=== PATIENT | male | born 1950 | race Caucasian/White ===

== ENCOUNTER 2017-02-25 19:55 | Inpatient (IN) | payer MEDICAID ==
[~2017-02-25] VITALS: Ht 165.1 cm; Wt 114.3 kg
--- NOTE | 2017-02-25 20:13 | NUR ---
PT BIB , AMBULATORY TO ER BED 8 C/O MIDUPPER BACK PAIN X YESTERDAY, NOW HAVING MIDSTERNAL CP RADIATES TO BACK X2 HRS ENGINE REPAIRER SERVICE. PT AOX3 RR EVEN AND UNLABORED. NO SOB NOTED. NAD NOTED. NO NVD AT THIS TIME. PT NOT DIAPHORETIC. PT GOWNED AND PLACED ON MONITOR WAITING FOR MD BROOKS.
--- NOTE | 2017-02-25 20:20 | NUR ---
DR. ESQUIVEL AT BEDSIDE FOR EVAL.
[2017-02-25] MEDS ORDERED: ONDANSETRON HCL/PF 4 MG/2 ML VIAL ONE (20:29)
[2017-02-25] MEDS ORDERED: MORPHINE SULFATE INJ 2 MG/ML DISP.SYRIN IV ONE (20:30)
[2017-02-25] MEDS ORDERED: ASPIRIN 81 MG TAB.CHEW ONE (20:30)
[2017-02-25] MEDS ORDERED: MORPHINE SULFATE INJ 4 MG/ML DISP.SYRIN ONE (20:30)
[2017-02-25] MEDS ORDERED: ONDANSETRON HCL/PF 4 MG/2 ML VIAL IVP ONE (20:30)
[2017-02-25] MEDS ORDERED: ASPIRIN 81 MG TAB.CHEW PO ONE (20:30)
[2017-02-25] MEDS ORDERED: IV NS 0.9% 1,000 ML BAG IV ONE (20:30)
[2017-02-25 20:54] LABS: BASOPHILS # (AUTO) 0.1 /CMM (0.0-0.2); BASOPHILS % (AUTO) 1.3 % (0.0-2.0); EOSINOPHILS # (AUTO) 0.4 /CMM (0.0-0.7); EOSINOPHILS % (AUTO) 3.9 % (0.0-6.0); HEMATOCRIT 46 % (39-51); HEMOGLOBIN 15.2 g/dL (13.5-17.5); LYMPHOCYTES # (AUTO) 2.8 /CMM (0.8-4.8); LYMPHOCYTES % (AUTO) 27.4 % (20.0-44.0); MEAN CORPUSCULAR HEMOGLOBIN 30 PG (26.0-33.0); MEAN CORPUSCULAR HGB CONC 33 g/dl (31.0-36.0); MEAN CORPUSCULAR VOLUME 89 fL (80-96); MONOCYTES # (AUTO) 0.6 /CMM (0.1-1.30); MONOCYTES % (AUTO) 5.5 % (2.0-12.0); NEUTROPHILS # (AUTO) 6.3 /CMM (1.8-8.9); NEUTROPHILS % (AUTO) 61.9 % (43.0-81.0); PLATELET COUNT (AUTO) 195 /CMM (150-450); RDW COEFFICIENT OF VARIATION 14.2 (11.5-15.0); RED BLOOD CELL COUNT(AUTO) 5.15 MIL/uL (4.5-6.0); WHITE BLOOD COUNT (AUTO) 10.3 K/uL (4.3-11.0)
--- NOTE | 2017-02-25 20:56 | NUR ---
RADIOLOGY AT BEDSIDE FOR CXR
[2017-02-25 21:01] LABS: CALCIUM, SERUM 8.9 mg/dL (8.5-10.1); CREATININE 1.2 mg/dL (0.6-1.3); POTASSIUM 3.6 mmol/L (3.5-5.1)
[2017-02-25 21:03] LABS: INR 1.14 (0.87-1.13); PROTHROMBIN TIME 11.9 SECS (9.5-12.7)
[2017-02-25 21:07] LABS: ALBUMIN 3.6 g/dL (3.4-5.0); BILIRUBIN,DIRECT 0.1 mg/dL (0.0-0.2); BILIRUBIN,TOTAL 0.5 mg/dL (0.2-1.0); TOTAL PROTEIN, SERUM 7.4 g/dL (6.4-8.2)
[2017-02-25 21:08] LABS: TROPONIN I 0.017 ng/mL (0.00-0.056)
[2017-02-25] MEDS ORDERED: IOHEXOL-350 100 ML VIAL IV ONE (21:09)
[2017-02-25] MEDS ORDERED: IV NS 0.9% 250 ML IV ONE (21:09)
--- NOTE | 2017-02-25 21:23 | NUR ---
PT TO CT.
--- NOTE | 2017-02-25 21:35 | NUR ---
PT RETURNED FROM CT.
--- NOTE | 2017-02-25 22:15 | NUR ---
DR. YOUNGBLOOD SPOKE TO DR ESQUIVEL REGARDING ADMISSION.
[2017-02-25] MEDS ORDERED: Z GUARD REMEDY 2 OZ OINT TP PRN (22:30)
[2017-02-25] MEDS ORDERED: ZOLPIDEM TARTRATE 5 MG TABLET PO PRN (22:30)
[2017-02-25] MEDS ORDERED: ACETAMINOPHEN 325 MG TABLET PO PRN (22:30)
[2017-02-25] MEDS ORDERED: ONDANSETRON HCL/PF 4 MG/2 ML VIAL IVP PRN (22:30)
[2017-02-25] MEDS ORDERED: MAG HYDROX/AL HYDROX/SIMETH 30 ML UDC PO PRN (22:30)
[2017-02-25] MEDS ORDERED: MAGNESIUM HYDROXIDE 30 ML UDC PO PRN (22:30)
[2017-02-25] MEDS ORDERED: MORPHINE SULFATE INJ 2 MG/ML DISP.SYRIN IV PRN (22:30)
[2017-02-25] MEDS ORDERED: HYDROCODONE/APAP 5/325MG 1 EACH TABLET PO PRN (22:30)
[2017-02-25] MEDS ORDERED: HYDROCODONE/APAP 10/325MG 1 EA TABLET PO PRN (22:30)
[2017-02-25] MEDS ORDERED: ENOXAPARIN SODIUM 40 MG/0.4 ML DISP.SYRIN SQ SCH (22:30)
--- NOTE | 2017-02-25 22:38 | NUR ---
REPORT GIVEN TO PENNIE GREER FOR TELE BED 322
[2017-02-25] MEDS ORDERED: ACET-73 PO (22:46)
[2017-02-25] MEDS ORDERED: ALBU2.5V13 NEB (22:46)
[2017-02-25] MEDS ORDERED: TAMS0.4C34 PO (22:46)
[2017-02-25] MEDS ORDERED: MECL-102 PO (22:46)
[2017-02-25] MEDS ORDERED: SIMV40TA5 PO (22:46)
[2017-02-25] MEDS ORDERED: BENA40TA2 PO (22:46)
[2017-02-25] MEDS ORDERED: ALBU18HF2 INH (22:46)
[2017-02-25] MEDS ORDERED: HYDR-4076 PO (22:46)
[2017-02-25] MEDS ORDERED: MOME13HF2 INH (22:46)
[2017-02-25] MEDS ORDERED: ASPI-605 PO (22:46)
[2017-02-25] MEDS ORDERED: IBUP-1482 PO (22:46)
[2017-02-25] MEDS ORDERED: INSU100C10 SQ (22:46)
[2017-02-25] MEDS ORDERED: MONT10TA22 PO (22:46)
[2017-02-25] MEDS ORDERED: NPH,100V SQ (22:46)
[2017-02-25] MEDS ORDERED: NEBI20TA2 PO (22:46)
[2017-02-25] MEDS ORDERED: SPIR25TA4 PO (22:46)
[2017-02-25] MEDS ORDERED: LORA10TA7 PO (22:46)
[2017-02-25] MEDS ORDERED: FLUN25SP BNOSTRILS (22:46)
[2017-02-25] MEDS ORDERED: TIOT18CA3 IH (22:46)
[2017-02-25 22:50] VITALS: BP 166/83
--- NOTE | 2017-02-25 22:50 | NUR ---
WEB OPERATIONS LEAD INITIAL NOTES PT WAS RECEIVED FROM ER VIA [facility], AT BEDSIDE. ABLE TO AMBULATE TO BED FROM [facility]. A/O X3 [place]OREAN SPEAKING. TELE MONITOR SHOWS SB WITH BBB. NO SIGNS OF SOB OR DISTRESS. ONLY COMPLAINTS OF CHEST PAIN ON EXERTION. IV ACCESS IS INTACT AND PATENT. PENDING ORDERS FROM MD. WILL CONTINUE TO MONITOR PT
[2017-02-25 23:00] VITALS: BP 166/83
--- NOTE | 2017-02-25 23:01 | NUR ---
PT TRANSFERRED PER ACLS PROTOCOL TO [facility] BED 322-2
[2017-02-25] MEDS ORDERED: DEXTROSE 50%-WATER 50 ML DISP.SYRIN IV PRN (23:30)
[2017-02-25] MEDS ORDERED: *INSULIN REGULAR(HUMULIN R)HUM 100 UNIT/ML VIAL SQ PRN (23:30)
[2017-02-25] MEDS: BLOOD SUGAR DIAGNOSTIC 1 EACH STRIP VI SCH (23:35)
[2017-02-25] MEDS ORDERED: ENOXAPARIN SODIUM 40 MG/0.4 ML DISP.SYRIN SQ ONE (23:37)
[2017-02-26] VITALS (7 sets, daily range): BP systolic 108–168; BP diastolic 56–88
[2017-02-26] MEDS ORDERED: NITROGLYCERIN PACKET 1 GM PACKET ONE (00:24)
[2017-02-26] MEDS: NITROGLYCERIN PACKET 1 GM PACKET TOP SCH ×2 (00:27→04:41)
[2017-02-26] MEDS ORDERED: CLONIDINE HCL 0.1 MG TABLET PO PRN (00:30)
--- NOTE | 2017-02-26 04:41 | NUR ---
NITRO HEAD DUE TO HR IN HIGH 40'S Addendum: 02/26/17 at 0442 by ZOEY HAYES NITRO HELD*
[2017-02-26] MEDS ORDERED: ALBUTEROL FS 2.5 MG/0.5 ML VIAL.NEB NEB SCH ×2 (06:00→07:30)
[2017-02-26] MEDS: BLOOD SUGAR DIAGNOSTIC 1 EACH STRIP VI SCH ×4 (06:14→22:54)
--- NOTE | 2017-02-26 06:53 | NUR ---
LANDING GEAR MECHANIC CLOSING NOTES PT IS IN BED SLEEPING. NO SIGNS OF SOB OR DISTRESS. TELE MONITOR SHOWING SB WITH BBB AT 49. IV ACCESS IS INTACT AND PATENT. PENDING CARDIAC CONSULT. INSULIN WAS HELD DUE TO BREAKFAST TRY BEING HELD FOR CONSULT. BED IS IN LOW AND LOCKED POSITION, CALL LIGHT WITHIN REACH. WILL ENDORSE TO DAYSHIFT
[2017-02-26 07:15] LABS: BASOPHILS % (AUTO) 0.3 % (0.0-2.0); EOSINOPHILS # (AUTO) 0.3 /CMM (0.0-0.7); EOSINOPHILS % (AUTO) 4.8 % (0.0-6.0); HEMATOCRIT 42 % (39-51); HEMOGLOBIN 14.3 g/dL (13.5-17.5); LYMPHOCYTES # (AUTO) 1.6 /CMM (0.8-4.8); LYMPHOCYTES % (AUTO) 23.9 % (20.0-44.0); MEAN CORPUSCULAR HEMOGLOBIN 30 PG (26.0-33.0); MEAN CORPUSCULAR HGB CONC 34 g/dl (31.0-36.0); MEAN CORPUSCULAR VOLUME 89 fL (80-96); MONOCYTES # (AUTO) 0.6 /CMM (0.1-1.30); MONOCYTES % (AUTO) 8.4 % (2.0-12.0); NEUTROPHILS # (AUTO) 4.3 /CMM (1.8-8.9); NEUTROPHILS % (AUTO) 62.6 % (43.0-81.0); PLATELET COUNT (AUTO) 167 /CMM (150-450); RDW COEFFICIENT OF VARIATION 14.2 (11.5-15.0); RED BLOOD CELL COUNT(AUTO) 4.74 MIL/uL (4.5-6.0); WHITE BLOOD COUNT (AUTO) 6.8 K/uL (4.3-11.0)
--- NOTE | 2017-02-26 07:15 | NUR ---
RN INITIAL NOTES:\ PATIENT STABLE. RESTING IN BED. ALERT ORIENTED X3. DENIES CHEST PAIN AT THE MOMENT. NONLABORED BREATHING ON 2L NASAL CANNULA. BED IN LOWEST POSITION. CALL LIGHT WITHIN REACH. WILL CONTINUE TO MONTIOR
[2017-02-26 07:29] LABS: CALCIUM, SERUM 8.2 mg/dL (8.5-10.1); MAGNESIUM 1.7 mg/dL (1.8-2.4); PHOSPHORUS 3.9 mg/dL (2.5-4.9); POTASSIUM 3.7 mmol/L (3.5-5.1)
[2017-02-26] MEDS: ALBUTEROL FS 2.5 MG/0.5 ML VIAL.NEB NEB SCH ×3 (08:14→19:41)
[2017-02-26] MEDS ORDERED: TIOTROPIUM BROMIDE 6 CAP/BOX CAP.W.DEV IH SCH (09:00)
[2017-02-26] MEDS ORDERED: FLUNISOLIDE SCH (09:00)
[2017-02-26] MEDS ORDERED: MOMETASONE INH SCH (09:00)
[2017-02-26] MEDS ORDERED: MONTELUKAST SODIUM (10MG) 10 MG TABLET PO SCH (09:00)
[2017-02-26] MEDS ORDERED: FORMOTEROL INH SCH (09:00)
[2017-02-26] MEDS ORDERED: REGADENOSON 0.4 MG/5 ML DISP.SYRIN IVP ONE (09:30)
[2017-02-26] MEDS: NITROGLYCERIN 30 GM TUBE TOP SCH ×2 (10:09→17:27)
[2017-02-26] MEDS ORDERED: Magnesium 1GM/D5W 100ML PREMIX 100 ML IV SCH (11:00)
[2017-02-26] MEDS: hydrALAZINE HCL 25 MG TABLET PO SCH ×3 (13:00→22:53)
[2017-02-26] MEDS: MECLIZINE HCL 25 MG TABLET PO SCH ×3 (13:00→17:25)
[2017-02-26] MEDS: IPRATROPIUM NEB FS 0.5 MG/2.5 ML AMPUL.NEB NEB SCH ×2 (13:30→19:41)
[2017-02-26] MEDS: LORATADINE 10 MG TABLET PO SCH (13:38)
[2017-02-26] MEDS: ASPIRIN 325 MG TABLET PO SCH (13:38)
[2017-02-26] MEDS: SPIRONOLACTONE 25 MG TABLET PO SCH (13:38)
--- NOTE | 2017-02-26 13:41 | NUR ---
RN Notes: patient am medications administered now. patient went for a stress test. was npo in the [facility]
[2017-02-26] MEDS: BENAZEPRIL HCL 20 MG TABLET PO SCH (14:06)
--- NOTE | 2017-02-26 14:08 | NUR ---
RN NOTES: MORNING MEDICATIONS ADMINISTERED AT 1330. MORNING MEDICATIONS WERE DELAYED DUE TO STRESS TEST. PATIENT WAS NPO IN THE MORNING PER DR OROPEZA'S ORDERS. ANTIVERT AND HYDRALAZINE DOSE THAT IS SCHEDULED AT 1300 HELD DUE TO THE ADMINISTRATION OF THE MORNING DOSE AT 1330
--- NOTE | 2017-02-26 15:00 | NUR ---
RN NOTES: PATIENT RETURNED FROM STRESS TEST. VS WNL. NO SIGNS OF DISTRESS. DENIES CHEST PAIN
[2017-02-26] MEDS: Magnesium 1GM/D5W 100ML PREMIX 100 ML IV SCH ×2 (15:41→17:18)
[2017-02-26] MEDS: INSULIN REGULAR, HUMAN 100 UNIT/ML 3 ML VIAL SQ PRN (17:31)
[2017-02-26] MEDS: SIMVASTATIN 40 MG TABLET PO SCH (18:30)
--- NOTE | 2017-02-26 19:10 | NUR ---
CHIEF ENGINEER DRILLING AND RECOVERY CLOSING NOTES: PATIENT STABLE. NONLABORED BREATHING NOTED ON 2 L NASAL CANNULA. PATIENT SINUS RHYTHEM NOTED. IV SITE PATENT AND INTACT. PATIENT DENIES CHEST PAIN. ALL NEEDS MET. CALL LGITH WITHIN REACH. BED AT LOWEST POSITION. ENDORSED TO NEXT SHIFT
--- NOTE | 2017-02-26 19:30 | NUR ---
ALTERATION WORKER INITIAL NOTE RECEIVED PT LAYING IN BED. A/0 X3 AND ABLE TO MAKE NEEDS KNOWN. ON 2L OF O2 VIA NC AND SATURATING 92%. BREATHING REGULAR, EVEN AND UNLABORED. TELE- SINUS SEBASTIAN 58 WITH BBB. NO C/I O CHEST PAIN AT THIS TIME. NO C/O DISCOMFORT. NPO STATUS MAINTAINED FOR PROCEDURE TONIGHT OF CT ABDOMEN. SPOKE WITH RADIOLOGY AND SAID THEY WOULD PROPERTY INSPECTOR PT [phone] TONIGHT. IV RAC #18 CLEAN, DRY , PATENT AND FLUSHING WELL. CALL LIGHT WITHIN REACH. WILL CONTINUE TO MONITOR.
[2017-02-26] MEDS ORDERED: ENOXAPARIN SODIUM 40 MG/0.4 ML DISP.SYRIN SQ ONE (22:41)
[2017-02-26] MEDS: MONTELUKAST SODIUM (10MG) 10 MG TABLET PO SCH (22:53)
[2017-02-26] MEDS: TAMSULOSIN 0.4 MG CAP.SR.24H PO SCH (22:53)
[2017-02-26] MEDS: ENOXAPARIN SODIUM 40 MG/0.4 ML DISP.SYRIN SQ SCH (22:54)
[2017-02-27] VITALS: BP 161/85
[2017-02-27] MEDS: NITROGLYCERIN 30 GM TUBE TOP SCH ×3 (00:30→16:05)
[2017-02-27] MEDS: BLOOD SUGAR DIAGNOSTIC 1 EACH STRIP VI SCH ×4 (07:30→22:38)
--- NOTE | 2017-02-27 07:30 | NUR ---
telephone coin box collector: notes bs aehxd=[id number], insulin held due to npo status, pt for ct abdomen with contrast today.
[2017-02-27 08:00] VITALS: BP_SYST 112; BP_SYST 126; BP_DIAS 58; BP_DIAS 78
[2017-02-27] MEDS: hydrALAZINE HCL 25 MG TABLET PO SCH ×3 (09:00→21:00)
[2017-02-27] MEDS: BENAZEPRIL HCL 20 MG TABLET PO SCH (09:00)
[2017-02-27] MEDS: MECLIZINE HCL 25 MG TABLET PO SCH ×3 (09:00→16:05)
[2017-02-27] MEDS: SPIRONOLACTONE 25 MG TABLET PO SCH (09:00)
[2017-02-27] MEDS: LORATADINE 10 MG TABLET PO SCH (09:00)
[2017-02-27] MEDS: ASPIRIN 325 MG TABLET PO SCH (09:00)
--- NOTE | 2017-02-27 09:00 | NUR ---
telecommunications project manager: notes meditech down, am meds given as ordered.
[2017-02-27] MEDS: ALBUTEROL FS 2.5 MG/0.5 ML VIAL.NEB NEB SCH ×3 (09:44→21:37)
[2017-02-27] MEDS: IPRATROPIUM NEB FS 0.5 MG/2.5 ML AMPUL.NEB NEB SCH ×3 (09:45→21:37)
[2017-02-27] MEDS ORDERED: IV NS 0.9% 250 ML IV ONE (10:06)
[2017-02-27] MEDS ORDERED: IOHEXOL-300 100 ML VIAL IV ONE (10:06)
--- NOTE | 2017-02-27 10:23 | NUR ---
telephone triage nurse: notes back from ct and instructed pt not to take glucophage for 2 days due to contrast, pt verbalized understanding.
[2017-02-27 10:35] LABS: CALCIUM, SERUM 8.5 mg/dL (8.5-10.1); CREATININE 1.1 mg/dL (0.6-1.3); MAGNESIUM 1.9 mg/dL (1.8-2.4); POTASSIUM 3.5 mmol/L (3.5-5.1)
[2017-02-27 12:00] VITALS: BP 141/70
[2017-02-27] MEDS: INSULIN REGULAR, HUMAN 100 UNIT/ML 3 ML VIAL SQ PRN (12:10)
--- NOTE | 2017-02-27 13:35 | NUR ---
tele naphthalene operator: lifestyle director f/u dr. haile here and informed md that ct abd/pelvis has been resulted with no new order at this time. md will review results.
[2017-02-27 16:00] VITALS: BP 175/77
[2017-02-27] MEDS ORDERED: INSULIN LISPRO/ASPART 100 UNIT/ML CARTRIDGE SQ SCH ×2 (17:00→18:00)
[2017-02-27] MEDS: SIMVASTATIN 40 MG TABLET PO SCH (17:23)
[2017-02-27] MEDS ORDERED: BYSTOLIC 10 MG PO ONE (18:00)
--- NOTE | 2017-02-27 18:20 | NUR ---
tele accelerator systems director: notes resting comfortable in bed. tele sr=69. no c/o chest pain or any discomfort. needs attended. no apparent distress noted. will continue to monitor.
[2017-02-27 18:42] VITALS: BP 123/66
--- NOTE | 2017-02-27 19:20 | NUR ---
TELE/RN OPENING NOTES PT RECEIVED AWAKE, STANDING BY BED. GAIT STEADY. A/OX4, ON ROOM AIR, BREATHING EVEN AND UNLABORED. DENIES SOB, CHEST PAIN OR ANY OTHER PAIN AT THIS TIME. ON TELE MONITOR SHOWING SINUS SEBASTIAN WITH HR 59. IV TO RAC PATENT AND INTACT. BED IN LOW/LOCKED POSITION, CALL LIGHT IN REACH. SIDE RAILS UPX2. WILL CONTINUE TO MONITOR
[2017-02-27 20:00] VITALS: BP 140/73
[2017-02-27] MEDS: MONTELUKAST SODIUM (10MG) 10 MG TABLET PO SCH (21:35)
[2017-02-27] MEDS: TAMSULOSIN 0.4 MG CAP.SR.24H PO SCH (21:35)
[2017-02-27] MEDS: ENOXAPARIN SODIUM 40 MG/0.4 ML DISP.SYRIN SQ SCH (21:38)
--- NOTE | 2017-02-27 22:00 | NUR ---
TELE/RN NOTES RECHECKED PT'S BLOOD PRESSURE =149/70, HR=56 DOUBLE CHECKED WITH CRN AND AGREES TO HOLD SCHEDULED APRESOLINE DUE TO LOW HR. SCHEDULED NOVOLIN FAXED TO NURSING MUSEUM CURATOR AROUND 2100. SAID SHE WILL BRING IT UP WHEN SHE MAKES HER ROUNDS. AWAITING HER TO DROP OF NOVOLIN AND WILL ADMINISTER SOON SHE PROVIDES IT
[2017-02-27] MEDS ORDERED: INSULIN NPH, HUMAN ISOPHANE 100 UNIT/ML VIAL SQ ONE (22:23)
[2017-02-27] MEDS: INSULIN NPH, HUMAN ISOPHANE 100 UNIT/ML VIAL SQ SCH (22:38)
--- NOTE | 2017-02-27 23:36 | NUR ---
TELE/RN NOTES PT C/O OF BACK PAIN 01/18. ADMINISTERED PRN MORPHINE. WILL MONITOR FOR EFFECTIVENESS
[2017-02-28] VITALS (8 sets, daily range): BP systolic 140–165; BP diastolic 60–88
[2017-02-28] MEDS: NITROGLYCERIN 30 GM TUBE TOP SCH (00:56)
[2017-02-28] MEDS: IPRATROPIUM NEB FS 0.5 MG/2.5 ML AMPUL.NEB NEB SCH ×3 (01:30→13:24)
[2017-02-28] MEDS: ALBUTEROL FS 2.5 MG/0.5 ML VIAL.NEB NEB SCH ×2 (01:30→07:58)
[2017-02-28] MEDS: BLOOD SUGAR DIAGNOSTIC 1 EACH STRIP VI SCH ×2 (06:46→12:19)
--- NOTE | 2017-02-28 07:01 | NUR ---
TELE/RN CLOSING NOTES PT ASLEEP, EASILY AROUSABLE TO NAME. A/OX3, ON/OFF 2LPM O2 VIA NC. BREATHING EVEN AND UNLABORED. DENIES SOB, NO S/S OF DISTRESS NOTED. DENIES CHEST PAIN. ON TELE MONITOR, SB/SR CURRENT HR AT 55. IV RAC PATENT AND INTACT. BLOOD SUGAR THIS AM=83, PT HAS NO INSULIN SLIDING SCALE ORDERED. SNACKS REMAINED AT BEDSIDE. MADE PT COMFORTABLE DURING SHIFT. ALL NEEDS MET. BED IN LOW/LOCKED POSITION WITH CALL LIGHT IN REACH. SIDE RAILS UPX2. WILL ENDORSE TO AM SHIFT ZAC.
--- NOTE | 2017-02-28 07:30 | NUR ---
TELE/RN OPENING NOTE PATIENT RECEIVED IN BED IN STABLE CONDITION. A/O X 4. NO SIGNS OF ACUTE DISTRESS. NO COMPLAIN OF PAIN OR DISCOMFORT. ON TELE MONITORING WITH SR/SB. ALL NEEDS ATTENDED TO. CALL LIGHT WITHIN REACH. WILL CONTINUE TO MONITOR TO ENSURE SAFETY.
[2017-02-28] MEDS: ASPIRIN 325 MG TABLET PO SCH (08:37)
[2017-02-28] MEDS: MECLIZINE HCL 25 MG TABLET PO SCH ×2 (08:37→12:18)
[2017-02-28] MEDS: LORATADINE 10 MG TABLET PO SCH (08:38)
[2017-02-28] MEDS: SPIRONOLACTONE 25 MG TABLET PO SCH (08:38)
[2017-02-28] MEDS: BENAZEPRIL HCL 20 MG TABLET PO SCH (08:38)
[2017-02-28] MEDS: hydrALAZINE HCL 25 MG TABLET PO SCH ×2 (09:00→12:20)
[2017-02-28] MEDS ORDERED: ISOSORBIDE DINITRATE (20MG) 20 MG TABLET PO SCH (09:00)
[2017-02-28] MEDS ORDERED: BYSTOLIC 20 MG PO SCH ×2 (09:00)
[2017-02-28] MEDS: INSULIN NPH, HUMAN ISOPHANE 100 UNIT/ML VIAL SQ SCH (09:24)
--- NOTE | 2017-02-28 12:37 | NUR ---
MS/RN SEEN BY ABIMAEL WILCOX PATIENT SEEN BY ABIMAEL WALKER WITH ORDERS TO DISCHARGE TODAY.
--- NOTE | 2017-02-28 13:59 | NUR ---
MS/BREAD OVEN OPERATOR PATIENT DISCHARGE HOME IN STABLE CONDITION. A/O X 4. NO SIGNS OF ACUTE DISTRESS. NO COMPLAIN OF PAIN OR DISCOMFORT. DISCHARGE INSTRUCTIONS AND EDUCATION PROVIDED TO PATIENT AND , ALSO MADE AWARE TO MAKE APPOINTMENT WITH PRIMARY WITHIN A WEEK. PATIENT AND BOTH VERBALIZED UNDERSTANDING OF TEACHING. ALL NEEDS ATTENDED TO. PER PATIENT, FLU SHOT WAS GIVEN TO HIM AT HIS DR. OFFICE ON 02/25/17. CD IMAGING COPY OF ALL THE SCANS AND ULTRA SOUND DONE IN HOSPITAL WAS PROVIDED TO PATIENT PER ORDER. LEFT VIA PRIVATE CAR ACCOMPANIED BY . NAME BAND AND IV LINE REMOVED.
== END 2017-02-28 14:45 | disposition home or self-care (01) | DRG 198 ==
LOC: ER 19:58 → TELE 22:25 → MED 02-28 08:39
PROVIDERS: ADMIT Internal Medicine; ATTEND Internal Medicine
DX: R07.89 Other chest pain (principal); I25.10 Atherosclerotic heart disease of native coronary artery without angina pectoris; N17.0 Acute kidney failure with tubular necrosis; E83.42 Hypomagnesemia; E11.9 Type 2 diabetes mellitus without complications; G47.33 Obstructive sleep apnea (adult) (pediatric); J45.909 Unspecified asthma, uncomplicated; Z85.47 Personal history of malignant neoplasm of testis; N40.0 Benign prostatic hyperplasia without lower urinary tract symptoms; R59.1 Generalized enlarged lymph nodes; E66.01 Morbid (severe) obesity due to excess calories; Z68.41 Body mass index [BMI] 40.0-44.9, adult; I10 Essential (primary) hypertension; Z90.79 Acquired absence of other genital organ(s)
CPT/HCPCS: 36415; 71010-TC; 74178; 76870-TC; 80048-TC; 80061-TC; 80076-TC; 82105; 82962-TC; 83615-TC; 83735-TC; 84100-TC; 84484-TC; 84702-TC; 85025-TC; 85730-TC; 87081-TC; 94799-TC; A4606; A9502; J1650; J1815; J2270; J2405; J2785; J3475; J7030; J7040; J7050; J8597; Q9967; Z7610

== ENCOUNTER 2017-10-19 21:27 | Inpatient (IN) | payer MEDICARE, MEDICAID ==
[~2017-10-19] VITALS: Ht 165.1 cm; Wt 117.0 kg
[~2017-10-19 21:27] MED LIST: ACET-73 PO; ALBU18HF2 INH; ALBU2.5V13 NEB; ASPI-605 PO; BENA40TA8 PO; FLUN25SP BNOSTRILS; HYDR-4076 PO; IBUP-1957 PO; INSU100C10 SQ; LORA10TA7 PO; MECL-102 PO; MOME13HF2 INH; MONT10TA22 PO; NEBI20TA2 PO; NPH,100V SQ; SIMV40TA5 PO; SPIR25TA6 PO; TAMS0.4C34 PO; TIOT18CA3 IH
--- NOTE | 2017-10-19 21:27 | NUR ---
BBSELF C/C SOB X 4 DAYS W/ DIFFICULTY BREATHING WHEN LAYING DOWN, BETTER WHEN STANDING UP. PT IS HYPERTENSIVE UPON ARRIVAL AND BRADYCARDIC. PT DOES NOT SEEM TO BE WORKING FOR OXYGENATION BUT WILL CONTINUE TO MONITOR FOR ANY CHANGES DURING THE SHIFT.
--- NOTE | 2017-10-19 21:50 | NUR ---
EKG AT BEDSIDE
[2017-10-19 21:57] LABS: BASOPHILS # (AUTO) 0.1 /CMM (0.0-0.2); BASOPHILS % (AUTO) 0.6 % (0.0-2.0); EOSINOPHILS % (AUTO) 2.6 % (0.0-6.0); HEMATOCRIT 46 % (39-51); HEMOGLOBIN 15.4 g/dL (13.5-17.5); LYMPHOCYTES # (AUTO) 3.3 /CMM (0.8-4.8); MEAN CORPUSCULAR HGB CONC 33 g/dl (31.0-36.0); MEAN CORPUSCULAR VOLUME 92 fL (80-96); MONOCYTES # (AUTO) 0.8 /CMM (0.1-1.30); MONOCYTES % (AUTO) 7.6 % (2.0-12.0); NEUTROPHILS # (AUTO) 6.2 /CMM (1.8-8.9); NEUTROPHILS % (AUTO) 58.2 % (43.0-81.0); PLATELET COUNT (AUTO) 241 /CMM (150-450); RDW COEFFICIENT OF VARIATION 13.4 (11.5-15.0); RED BLOOD CELL COUNT(AUTO) 5.05 MIL/uL (4.5-6.0); WHITE BLOOD COUNT (AUTO) 10.7 K/uL (4.3-11.0)
[2017-10-19] MEDS ORDERED: ALBUTEROL FS 2.5 MG/3 ML VIAL.NEB NEB ONE (22:00)
--- NOTE | 2017-10-19 22:04 | NUR ---
RT CALLED REGARDING ALBUTEROL TX
--- NOTE | 2017-10-19 22:11 | NUR ---
QUARANTINE OFFICER AT BEDSIDE
[2017-10-19] MEDS ORDERED: ALBUTEROL FS 2.5 MG/3 ML VIAL.NEB ONE (22:12)
[2017-10-19 22:14] LABS: CALCIUM, SERUM 9.2 mg/dL (8.5-10.1); CREATININE 1.2 mg/dL (0.6-1.3); POTASSIUM 3.6 mmol/L (3.5-5.1)
[2017-10-19 22:17] LABS: INR 1.1 (0.87-1.13)
[2017-10-19 22:20] LABS: TROPONIN I 0.019 ng/mL (0.00-0.056)
[2017-10-19 22:27] LABS: ALBUMIN 3.4 g/dL (3.4-5.0); BILIRUBIN,DIRECT 0.1 mg/dL (0.0-0.2); BILIRUBIN,TOTAL 0.5 mg/dL (0.2-1.0); TOTAL PROTEIN, SERUM 7.4 g/dL (6.4-8.2)
[2017-10-19] MEDS ORDERED: methylPREDNISolone SOD SUCC 125 MG/2ML VIAL ONE (22:57)
[2017-10-19] MEDS ORDERED: methylPREDNISolone SOD SUCC 125 MG/2ML VIAL IV ONE (23:00)
[2017-10-19] MEDS ORDERED: AZITHROMYCIN 500 MG in IV D5W 250 ML IV ONE (23:30)
[2017-10-19] MEDS ORDERED: CEFTRIAXONE 1 G in IV D5W 50 ML IV ONE (23:30)
[2017-10-19] MEDS ORDERED: AZITHROMYCIN 500 MG VIAL ONE (23:30)
[2017-10-19] MEDS ORDERED: CEFTRIAXONE 1GM BAG (ER ONLY) 50 ML IV ONE (23:30)
[2017-10-20] VITALS (22 sets, daily range): BP systolic 101–180; BP diastolic 62–94
--- NOTE | 2017-10-20 01:00 | NUR ---
RN ADMITTING NOTES RECEIVED REPORT ENGRAVER AUTOMATIC DONYA. Pt WAS BROUGHT UP TO THE FLOOR VIA GURNEY. WAS ABLE TO AMB TO ROOM 315 BED 2 WITH A STEADY GAIT. Pt IS A/OX3, VERBAL, ABLE TO MAKE NEEDS KNOW. LEBANESE SPEAKING BUT UNDERSTANDS SOME TURKISH. NO S/S OF ACUTE DISTRESS NOTED. SLIGHT SOB NOTED WITH EXERTION. NO C/O CHEST PAIN. PLACED ON 3L NC. ON TELE. IV ACCESS ON RAC#18G. SAFETY MEASURES IN PLACE. BED LOW, LOCKED, HOB ELEVATED, SIDE RAILS UP, CALL LIGHT AND BEDSIDE TABLE WITHIN REACH. WAITING FOR ADMITTING ORDERS. WILL CONTINUE TO MONITOR Pt THROUGHOUT THE NIGHT.
[2017-10-20] MEDS ORDERED: ONDANSETRON HCL/PF 4 MG/2 ML VIAL IVP PRN (02:30)
[2017-10-20] MEDS ORDERED: IBUPROFEN 800 MG TABLET PO PRN (02:30)
[2017-10-20] MEDS ORDERED: TAMSULOSIN 0.4 MG CAP.SR.24H PO SCH (02:30)
[2017-10-20] MEDS ORDERED: FUROSEMIDE 100 MG/10 ML VIAL IV ONE (02:30)
[2017-10-20] MEDS ORDERED: ACETAMINOPHEN 325 MG TABLET PO PRN (02:30)
[2017-10-20] MEDS ORDERED: Z GUARD REMEDY 2 OZ OINT TP PRN (02:30)
[2017-10-20] MEDS ORDERED: hydrALAZINE HCL 25 MG TABLET PO PRN (02:30)
[2017-10-20] MEDS ORDERED: HYDROCODONE/APAP 5/325MG 1 EACH TABLET PO PRN (02:30)
[2017-10-20] MEDS ORDERED: ZOLPIDEM TARTRATE 5 MG TABLET PO PRN (02:30)
[2017-10-20] MEDS ORDERED: ENOXAPARIN SODIUM 40 MG/0.4 ML DISP.SYRIN SQ SCH (02:30)
[2017-10-20 06:09] LABS: BASOPHILS % (AUTO) 0.1 % (0.0-2.0); EOSINOPHILS % (AUTO) 0.1 % (0.0-6.0); HEMATOCRIT 49 % (39-51); HEMOGLOBIN 16.4 g/dL (13.5-17.5); LYMPHOCYTES % (AUTO) 9.5 % (20.0-44.0); MEAN CORPUSCULAR HGB CONC 33 g/dl (31.0-36.0); MEAN CORPUSCULAR VOLUME 92 fL (80-96); MONOCYTES # (AUTO) 0.1 /CMM (0.1-1.30); MONOCYTES % (AUTO) 0.6 % (2.0-12.0); NEUTROPHILS % (AUTO) 89.7 % (43.0-81.0); PLATELET COUNT (AUTO) 222 /CMM (150-450); RDW COEFFICIENT OF VARIATION 13.3 (11.5-15.0); RED BLOOD CELL COUNT(AUTO) 5.34 MIL/uL (4.5-6.0)
[2017-10-20 06:35] LABS: THYROID STIMULATING HORMONE 0.909 uIU/mL (0.358-3.74)
[2017-10-20 06:36] LABS: ALBUMIN 3.4 g/dL (3.4-5.0); BILIRUBIN,TOTAL 0.7 mg/dL (0.2-1.0); CALCIUM, SERUM 8.7 mg/dL (8.5-10.1); CREATININE 1.3 mg/dL (0.6-1.3); MAGNESIUM 1.5 mg/dL (1.8-2.4); PHOSPHORUS 4.3 mg/dL (2.5-4.9); POTASSIUM 3.9 mmol/L (3.5-5.1); TOTAL PROTEIN, SERUM 7.6 g/dL (6.4-8.2)
--- NOTE | 2017-10-20 06:45 | NUR ---
RN NOTES RECEIVED CALL FROM LAB FOR CRITICAL LAB VALUE OF BLOOD SUGAR 449.
--- NOTE | 2017-10-20 06:50 | NUR ---
RN NOTES CHECKED BLOOD SUGAR ON GLUCOMETER/ACCUCHECK CAME OUT TO 481. CALLED [facility] TO INFORM ONCALL. WAITING FOR CALL BACK.
[2017-10-20] MEDS: IPRATROPIUM NEB FS 0.5 MG/2.5 ML AMPUL.NEB NEB SCH ×5 (07:00→23:30)
[2017-10-20] MEDS: ALBUTEROL FS 2.5 MG/3 ML VIAL.NEB NEB SCH ×4 (07:00→19:46)
[2017-10-20] MEDS ORDERED: IBUPROFEN 600 MG TABLET PO PRN (07:00)
--- NOTE | 2017-10-20 07:00 | NUR ---
RN CLOSING NOTES NEGRITA GONZALEZ WAS PAGED FOR CRITICAL BLOOD SUGAR. STILL WAITING FOR CALL BACK. Pt IS A/OX4. RESTING IN BED, EASILY AWAKENED. NO S/S OF ACUTE DISTRESS OR SOB NOTED DURING THE NIGHT. ALL NEEDS MET AND ATTENDED TO. SAFETY MEASURES IN PLACE. WILL ENDORSE TO DAYSHIFT RN FOR Pt's ZAC.
--- NOTE | 2017-10-20 07:55 | NUR ---
FOOD SERVICE TEAM MEMBER NOTES CALL RECEIVED FROM DR. WILLSON FROM [facility] [employer] WITH ORDERS TO GIVE 15 UNITS PER MED RECON AND FOLLOW UP WITH AM WHO IS ASSIGNED TO PATIENT FOR SLIDING SCALE. ORDERS NOTED AND CARRIED OUT.
[2017-10-20] MEDS ORDERED: INSULIN LISPRO/ASPART 100 UNIT/ML CARTRIDGE SQ SCH ×3 (08:00→18:00)
[2017-10-20] MEDS: hydrALAZINE HCL 25 MG TABLET PO SCH ×3 (08:13→17:00)
[2017-10-20] MEDS: BENAZEPRIL HCL 20 MG TABLET PO SCH (08:13)
[2017-10-20] MEDS: CARVEDILOL 12.5 MG TABLET PO SCH ×2 (08:13→21:18)
[2017-10-20] MEDS: ASPIRIN EC 81 MG TABLET.DR PO SCH (08:13)
[2017-10-20] MEDS: MECLIZINE HCL 25 MG TABLET PO SCH ×3 (08:16→16:59)
[2017-10-20] MEDS: MONTELUKAST SODIUM (10MG) 10 MG TABLET PO SCH (08:16)
[2017-10-20] MEDS: TAMSULOSIN 0.4 MG CAP.SR.24H PO SCH (08:16)
[2017-10-20] MEDS: ENOXAPARIN SODIUM 40 MG/0.4 ML DISP.SYRIN SQ SCH (08:17)
[2017-10-20] MEDS: LORATADINE 10 MG TABLET PO SCH (09:00)
[2017-10-20] MEDS ORDERED: TIOTROPIUM BROMIDE 6 CAP/BOX CAP.W.DEV IH SCH (09:00)
[2017-10-20] MEDS ORDERED: INSULIN NPH, HUMAN ISOPHANE 100 UNIT/ML VIAL SQ SCH ×3 (09:00→21:00)
[2017-10-20] MEDS: Magnesium 1GM/D5W 100ML PREMIX 100 ML IV SCH ×2 (10:16→11:20)
[2017-10-20 10:18] LABS: TROPONIN I < 0.017 ng/mL (0.00-0.056)
[2017-10-20] MEDS ORDERED: methylPREDNISolone SOD SUCC 40 MG/ML VIAL IV SCH (11:00)
[2017-10-20] MEDS ORDERED: DEXTROSE 50%-WATER 50 ML DISP.SYRIN IV PRN (11:00)
[2017-10-20] MEDS ORDERED: INSULIN REGULAR, HUMAN 100 UNIT/ML 3 ML VIAL SQ PRN (11:00)
[2017-10-20] MEDS ORDERED: *INSULIN REGULAR(HUMULIN R)HUM 100 UNIT/ML VIAL SQ PRN (11:00)
--- NOTE | 2017-10-20 11:59 | NUR ---
MS RN NOTES PATIENT NOTED WITH BG LEVEL ABOVE 600MG/DL 20 UNITS OF INSULIN ADMINISTERED ORDERED PER SLIDING SCALE. DR. ANAMIKA Cruz NOTIFIED OF RESULTS ORDERS OBTAINED TO GIVE ADDITIONAL 10 UNITS OF HUMULIN AND INCREASE NPH TO 40 UNITS TWICE DAILY GIVE THE ADDITIONAL NPH OF 18 UNITS NOW. PATIENT ASYMPTOMATIC. ALERT, ORIENTED X4 . IN NO DISTRESS. WILL CONTINUE TO MONITOR.
[2017-10-20] MEDS ORDERED: INSULIN REGULAR, HUMAN 100 UNIT/ML 3 ML VIAL SQ ONE (12:00)
[2017-10-20] MEDS ORDERED: INSULIN NPH, HUMAN ISOPHANE 100 UNIT/ML CARTRIDGE SQ ONE (12:00)
[2017-10-20] MEDS ORDERED: BLOOD SUGAR DIAGNOSTIC 1 EACH STRIP IN SCH (12:00)
--- NOTE | 2017-10-20 14:00 | NUR ---
INTERACTIVE DESIGNER NOTES INFORMED DR. WILLSON OF RESULTS OF BG DRAWN FROM LAB OF 627MG/DL ORDERS OT TRANSFER PATIENT TO ICU AND PLACE PATIENT ON INULIN DRIP NOTED AND CARRIED OUT. CHARGE NURSE MADE AWARE. COMPUTER SUPPORT SPECIALIST INSTRUCTOR MADE AWARE AWAITING FOR BED. PATIENT ASYMPTOMATIC. ALERT, ORIENTED X3. DENIES ANY DISCOMFORT. WILL CONTINUE TO MONITOR.
--- NOTE | 2017-10-20 15:10 | NUR ---
ICU/RN: RECEIVED REPORT FROM DUNG CASPER FROM 3W. PT TRANSFERRED TO ROOM 255. PT ALERT, AWAKE,FOLLOWS COMMANDS. SINUS ON TELE. ON NASAL CANULA, 4LITERS, NO ACUTE DISTRESS NOTED AT THIS TIME. PER MD PT WILL BE PLACED ON INSULIN DRIP FOR UNCONTROLLED SUGARS, AWAITING FOR ORDERS. ALL NEEDS WILL BE ATTENDED TO, SAFETY MEASURES TAKEN, BED IN LOW POSITION, SIDE RIALS UP, CALL LIGHT WITHIN REACH. PT AMBULATORY. BED ALARM ON AND AUDIBLE.
--- NOTE | 2017-10-20 15:30 | NUR ---
ANALYSIS MANAGER NOTES PATIENT TRANSFERRED TO ICU BED 255 REPORT GIVEN TO FELECIA CASPER .
[2017-10-20 15:36] LABS: ABG BASE EXCESS 3.3 mmol/L; ABG OXYGEN SATURATION 94.7 % (92.0-98.5); ABG PCO2 40.4 mmHg (35.0-45.0); ABG PH 7.451 (7.350-7.450); ABG PO2 75.5 mmHg (75.0-100.0); AaDO2 134.3 mmHg; COHb 0.7 % (0.5-1.5); MetHb 0.6 % (0.0-1.5); O2Hb 93.5 % (94.0-97.0); SITE, ABG Right Radial; VENT MODE, BG NASAL CANNULA
[2017-10-20] MEDS: BLOOD SUGAR DIAGNOSTIC 1 EACH STRIP IN SCH ×8 (16:57→23:16)
[2017-10-20] MEDS: INS (REG) DRIP 100 U/100 ML NS IV PRN ×8 (16:58→23:14)
--- NOTE | 2017-10-20 16:58 | NUR ---
ICU/RN: INSULIN DRIP STARTED PER PROTOCOL. WILL CONTINUE TO MONITOR.
[2017-10-20] MEDS: SIMVASTATIN 40 MG TABLET PO SCH (17:01)
--- NOTE | 2017-10-20 18:45 | NUR ---
ICU/RN ENDING NOTES,AM REPORT WILL BE ENDORSED TO NIGHT NURSE. ALL NEEDS ATTENDED TO, SAFETY MEASURES TAKEN. PT AAOX4, ON 4 LITERS NASAL CANULA, NO DISTRESS NOTED. SINUS ON TELE. PT ON INSULIN DRIP PER PROTOCOL. AT BEDSIDE FOR CONSULT. ALL NEEDS ATTENDED TO, BED IN LOW POSITION, SIDE RAILS UP, CALL LIGHT WITHIN REACH. WILL CONTINUE CARE AND HOURLY ACCU CHECKS.
--- NOTE | 2017-10-20 19:31 | NUR ---
ICU/RM RECEIVED PT AWAKE,TRACKS DOES NOT FOLLOW COMMANDS.ON VENT PER TRACH 30% FI02,SATURATION OF 100%.ON LEVOPHED DRIP AT 2MCG/MIN W/ SBP OF 101 MMHG,WILL CONTINUE TO MONITOR. Addendum: 10/20/17 at 1940 by DILLAN DEAN RN WRONG PT.
--- NOTE | 2017-10-20 19:41 | NUR ---
ICU/RN RECEIVED PT AWAKE ALERT OX4.DENIES PAIN OR DISCOMFORT.ON INSULIN DRIP AT 4UNITS/HR .MONITOR SHOWS NSR.
--- NOTE | 2017-10-20 20:49 | NUR ---
RECEIVED PT ON 3L NC. NO RESP DISTRESS. PT IS AWAKE AND ALERT. RECEIVING BREATHING TX Q4. WILL CONTINUE TO MONITOR.
--- NOTE | 2017-10-20 22:00 | NUR ---
ICU/RN STOOD AT SIDE OF BED TO URINATE,BACK TO BED WITHOUT INCIDENT.
--- NOTE | 2017-10-20 22:24 | NUR ---
PT IS AWAKE AND ALERT. PLACED ON NOC CPAP PER MD. WILL CONTINUE TO MONITOR. RN NOTIFIED. Addendum: 10/20/17 at 2225 by VARGHESE BRYSON RT Amended: Links added.
[2017-10-21] VITALS (22 sets, daily range): BP systolic 136–164; BP diastolic 58–92
[2017-10-21] MEDS: INS (REG) DRIP 100 U/100 ML NS IV PRN ×14 (00:06→07:03)
[2017-10-21] MEDS: BLOOD SUGAR DIAGNOSTIC 1 EACH STRIP IN SCH ×13 (01:04→21:47)
[2017-10-21] MEDS: IPRATROPIUM NEB FS 0.5 MG/2.5 ML AMPUL.NEB NEB SCH ×6 (02:46→23:30)
--- NOTE | 2017-10-21 03:04 | NUR ---
@2330 PT REQUESTED TO BE OFF CPAP FOR 5 MIN TO DRINK TEA. PLACED ON 3L NC. RN NOTIFIED ME THAT PT DOES NOT WANT TO GO BACK ON THE MACHINE AND HE'S FINE ON NC. Addendum: 10/21/17 at 0308 by VARGHESE BRYSON RT Amended: Links added.
[2017-10-21 04:46] LABS: BASOPHILS % (AUTO) 0.2 % (0.0-2.0); EOSINOPHILS % (AUTO) 0.2 % (0.0-6.0); HEMATOCRIT 44 % (39-51); HEMOGLOBIN 14.5 g/dL (13.5-17.5); LYMPHOCYTES # (AUTO) 1.3 /CMM (0.8-4.8); LYMPHOCYTES % (AUTO) 8.1 % (20.0-44.0); MEAN CORPUSCULAR HGB CONC 33 g/dl (31.0-36.0); MEAN CORPUSCULAR VOLUME 93 fL (80-96); MONOCYTES # (AUTO) 0.8 /CMM (0.1-1.30); MONOCYTES % (AUTO) 5.1 % (2.0-12.0); NEUTROPHILS # (AUTO) 13.7 /CMM (1.8-8.9); NEUTROPHILS % (AUTO) 86.4 % (43.0-81.0); PLATELET COUNT (AUTO) 228 /CMM (150-450); RDW COEFFICIENT OF VARIATION 13.4 (11.5-15.0); RED BLOOD CELL COUNT(AUTO) 4.73 MIL/uL (4.5-6.0); WHITE BLOOD COUNT (AUTO) 15.9 K/uL (4.3-11.0)
[2017-10-21 05:02] LABS: ALANINE AMINOTRANSFERASE 23 U/L (12-78); ALBUMIN 3.1 g/dL (3.4-5.0); ALKALINE PHOSPHATASE 66 U/L (46-116); ASPARTATE AMINOTRANSFERASE 16 U/L (15-37); BILIRUBIN,TOTAL 0.6 mg/dL (0.2-1.0); CARBON DIOXIDE 33 mmol/L (21-32); CHLORIDE 98 mmol/L (98-107); CREATININE 1.3 mg/dL (0.6-1.3); GLUCOSE 196 mg/dL (74-106); MAGNESIUM 2.4 mg/dL (1.8-2.4); PHOSPHORUS 4.2 mg/dL (2.5-4.9); POTASSIUM 3.8 mmol/L (3.5-5.1); SODIUM SERUM 136 mmol/L (136-145); TOTAL PROTEIN, SERUM 6.9 g/dL (6.4-8.2); UREA NITROGEN, BLOOD 36 mg/dL (7-18)
[2017-10-21 05:06] LABS: TROPONIN I < 0.017 ng/mL (0.00-0.056)
--- NOTE | 2017-10-21 06:20 | NUR ---
ICU/RN REMAINS ON INSULIN DRIP, CURRENTLY AT 2UNITS/HR .MONITOR SHOWS SINUS SEBASTIAN RATE 45-47/MIN WHEN SLEEPING,HR UP T0 60'S WHEN AWAKEN.
--- NOTE | 2017-10-21 07:03 | NUR ---
ICU/RN TM=550,INSULIN DRIP AT 2UNITS/HR
--- NOTE | 2017-10-21 07:15 | NUR ---
RECEIVED PATIENT A/OX3 SLEEPING AWAKE TO NAME. PATIENT DENIES SOB, DIFFICULTY BREATHING OR PAIN. PATIENT TOLERATING NASAL CANNULA 3LPM WILL TITRATE TOLERATED. INSULIN DRIP RUNNING AT 2U/HR PER PROTOCOL WILL. PATIENT NEEDS IN REACH, SAFETY PRECAUTIONS IN PLACE. WILL ROUND PRN
[2017-10-21] MEDS: ALBUTEROL FS 2.5 MG/3 ML VIAL.NEB NEB SCH ×4 (07:35→19:32)
--- NOTE | 2017-10-21 07:46 | NUR ---
RT PATIENT DID NOT WANT TO WAKE UP FOR TX. NO SOB NOTED
[2017-10-21] MEDS: MECLIZINE HCL 25 MG TABLET PO SCH ×3 (08:30→16:06)
[2017-10-21] MEDS: LORATADINE 10 MG TABLET PO SCH (08:30)
[2017-10-21] MEDS: MONTELUKAST SODIUM (10MG) 10 MG TABLET PO SCH (08:30)
--- NOTE | 2017-10-21 08:30 | NUR ---
DR MARTINEZ AT BEDSIDE. UPDATED ON PATIENT CONDITION, VS. PATIENT TOLERATED 1.5 HOURS OF BIPAP LAST NIGHT DUE TO MASK BEING UNCOMFORTABLE.
[2017-10-21] MEDS: TAMSULOSIN 0.4 MG CAP.SR.24H PO SCH (08:31)
[2017-10-21] MEDS: ASPIRIN EC 81 MG TABLET.DR PO SCH (08:31)
[2017-10-21] MEDS: CARVEDILOL 12.5 MG TABLET PO SCH ×2 (08:31→21:02)
[2017-10-21] MEDS: hydrALAZINE HCL 25 MG TABLET PO SCH ×3 (08:31→16:06)
[2017-10-21] MEDS: BENAZEPRIL HCL 20 MG TABLET PO SCH (08:31)
[2017-10-21] MEDS: ENOXAPARIN SODIUM 40 MG/0.4 ML DISP.SYRIN SQ SCH (08:53)
[2017-10-21] MEDS ORDERED: methylPREDNISolone SOD SUCC 125 MG/2ML VIAL IV ONE (09:00)
--- NOTE | 2017-10-21 09:33 | NUR ---
PATIENT MEDICAL RELEASE FORM FAXED PER MD VELIZ. FAX # [phone]
--- NOTE | 2017-10-21 10:47 | NUR ---
FAX NOT BEING SENT. CALLED [facility] AGAIN AND GIVEN ANOTHER # OF [phone]
--- NOTE | 2017-10-21 12:28 | NUR ---
X3 ATTEMPT TO FAX MED RELEASE REQUEST TO [facility]. CONTINUING TO GET "[facility]ORY BUSY UNABLE TO SEND" CONFIRMED 2 FAXES TO USE WITH MEDICAL RECORDS. TOLD TO CONTINUE TO TRY..
--- NOTE | 2017-10-21 13:15 | NUR ---
PER DR ANAMIKA IZAGUIRRE INSULIN DRIP. START PATIENT ON Q6H ACCUCHECKS AND SLIDING SCALE. FAX WENT THROUGH TO [facility]. INSULIN DRIP STOPPED PER MD ORDER.
[2017-10-21] MEDS ORDERED: INSULIN REGULAR, HUMAN 100 UNIT/ML 3 ML VIAL SQ PRN (13:30)
[2017-10-21] MEDS ORDERED: DEXTROSE 50%-WATER 50 ML DISP.SYRIN IV PRN ×2 (13:30→22:00)
--- NOTE | 2017-10-21 14:34 | NUR ---
RT HHN TX WAS PLACED IN NEBULIZER AND PATIENT DECIDED HE DID NOT WANT TX AT THIS TIME. PATIENT CONSTANTLY WALKING AROUND OR ON THE PHONE. NO SOB NOTED
--- NOTE | 2017-10-21 14:56 | NUR ---
PER DR COOL RESUME PATIENT HUMULIN N 22 UNITS SQ Q12H. NOTIFIED DR MARTINEZ PATIENT STATES BREATHING TREATMENTS ARE NOT WORKING AND REQUESTING THEOPHYLLINE. PER MD MARTINEZ ORDER PREDNISONE PO DAILY 20MG.
[2017-10-21] MEDS ORDERED: THEOPHYLLINE ANHYDROUS 100 MG TAB.SR.12H PO ONE (15:30)
--- NOTE | 2017-10-21 15:31 | NUR ---
PER DR JUAN MADRIGAL TO GIVE 250MG THEOPHYLLINE NOW AND CONTINUE WITH ANOTHER DOSE TONIGHT FOR 2100.
--- NOTE | 2017-10-21 15:50 | NUR ---
PER PHARMACY THEY ONLY CARRY 400MG LUISA DUR. MESSAGE TO
[2017-10-21] MEDS ORDERED: THEOPHYLLINE TAB 24HR 400 MG TAB.SR. PO ONE (16:00)
--- NOTE | 2017-10-21 16:14 | NUR ---
PER DR JUAN DIEZ ORDER 400MG THEOPHYLLINE DAILY.
--- NOTE | 2017-10-21 17:00 | NUR ---
CARE ENDORSED TO MANISHA CASPER FOR ZAC. DR WILLSON AWARE OF PATIENT BLOOD SUGAR 440. GAVE ORDERED 20 UNITS COVERAGE AND OK TO TRANSFER PER MD. PATIENT VS STABLE. ALL DUE MEDS GIVEN AND ALL NEEDS MET. PATIENT BELONGINGS ON PERSON.
[2017-10-21] MEDS: SIMVASTATIN 40 MG TABLET PO SCH (17:31)
[2017-10-21] MEDS ORDERED: BLOOD SUGAR DIAGNOSTIC 1 EACH STRIP IN SCH (18:00)
--- NOTE | 2017-10-21 18:33 | NUR ---
RN NOTES: 1710h REC'D PT VIA WHEELCHAIR ACCOMPANIED BY WEED CONTROL INSPECTOR BETTINA/DONAVAN. PT TRANSFERRED TO ROOM 113/2, TELE STATUS. PT IS A/O X 4, DENIES ANY PAIN/DISCOMFORT AT THIS TIME. PLACED ON TELEMONITOR, SR. ON NC AT 2LPM, NO SOB. HAS 2 IV LINE ACCESS: R AC G18 & L WRIST G20, BOTH FLUSHING WELL, NO S/SX OF INFECTION/INFILTRATION NOTED. PT IS AMBULATORY W/ STEADY GAIT. PT ORIENTED TO NEW ROOM. PROVIDED COMFORT & SAFETY MEASURES. BED KEPT LOW & IN LOCKED POS. CALL LIGHT PLACED W/IN REACH. WILL CONTINUE TO MONITOR & ATTEND PT NEEDS. PT REQUESTING MORE FOOD AFTER HIS DINNER. EXPLAINED TO PT THAT HE IS ON CCHO DIET TO PREVENT SUDDEN INCREASE OF HIS BLOOD SUGAR LEVEL. RISKS EXPLAINED TO THE PT BUT STILL PT INSISTING. CALLED KITCHEN AND REQUESTED TO FURTHER TALK TO THE PT, PT IS SAYING THAT HE DIDN'T EAT HIS ICE CREAM (WHICH IS HIGH ON SUGAR) & WANTED AN ALTERNATIVE FOR IT. KITCHEN GAVE SANDWICH TO THE PT.
--- NOTE | 2017-10-21 20:00 | NUR ---
SPECIAL DELIVERY MESSENGER NOTES RECEIVED PTS ON BED AWAKE ALERT AND RESPONSIVE , ON TELE SR ON THE MONITOR , SATING 97 %V/S STABLE AFEBRILE NO SOB NO DISTRESS NOTED , ALL NEEDS ATTENDED TOO CALL LIGHT WITHIN REACH ALL DUE MEDS GIVEN ORDERED , KEPT PTS CLEAN DRY AND COMFORTABLE .
[2017-10-21] MEDS ORDERED: THEOPHYLLINE ANHYDROUS 100 MG TAB.SR.12H PO SCH (21:00)
--- NOTE | 2017-10-21 21:00 | NUR ---
DIXONAC OPERATOR NOTES BLOOD SUGAR FOR 9PM IS 466 MG/DL 22 UNITS OF HUMULIN N GIVEN ORDERED , SPOKE TO BOBBY RE BLOOD SUGAR 466 WITH ORDER TO CHANGE ACCUCHECK TO ACHS IN MODERATE SCALE, ORDER NOTED AND CARRIED OUT, REGULAR INSULIN 10 UNITS GIVEN PER SLIDING SCALE . WILL CHECK BLOOD SUGAR AGAIN IN AM.PTS ON PO DIET
[2017-10-21] MEDS: INSULIN NPH, HUMAN ISOPHANE 100 UNIT/ML CARTRIDGE SQ SCH (21:11)
[2017-10-21] MEDS: *INSULIN REGULAR(HUMULIN R)HUM 100 UNIT/ML VIAL SQ PRN (21:46)
--- NOTE | 2017-10-21 22:00 | NUR ---
PRIVATE BANKER NOTES RT AT BEDSIDE BIPAP OFFERED PTS REFUSE EXPLAIN R/B PTS STILL REFUSING .PTS ON 2 LITERS OF 02 VIA KS SATING 96-97 , NO SOB NO DISTRESS NOTED.
[2017-10-22] VITALS: BP 147/61
--- NOTE | 2017-10-22 05:43 | NUR ---
COMMERCIAL LINES MANAGER NOTES PTS REMAINS ON TELE ON NC AT 2LITERS 0F 02 VIA NASAL CANULA,SATING 96-97 % NO SOB NO DISTRESS NOTED WILL ENDORSE TO RN DAY SHIFT FOR CONTINUITY OF CARE.PTS IS FOR CT SCAN CHEST ABDOMEN PELVIS.
[2017-10-22 06:32] LABS: BASOPHILS % (AUTO) 0.2 % (0.0-2.0); EOSINOPHILS % (AUTO) 0.1 % (0.0-6.0); HEMATOCRIT 44 % (39-51); HEMOGLOBIN 14.6 g/dL (13.5-17.5); LYMPHOCYTES # (AUTO) 1.9 /CMM (0.8-4.8); LYMPHOCYTES % (AUTO) 15.1 % (20.0-44.0); MEAN CORPUSCULAR HGB CONC 33 g/dl (31.0-36.0); MEAN CORPUSCULAR VOLUME 91 fL (80-96); MONOCYTES # (AUTO) 0.9 /CMM (0.1-1.30); NEUTROPHILS % (AUTO) 77.6 % (43.0-81.0); PLATELET COUNT (AUTO) 216 /CMM (150-450); RDW COEFFICIENT OF VARIATION 13.1 (11.5-15.0); RED BLOOD CELL COUNT(AUTO) 4.78 MIL/uL (4.5-6.0); WHITE BLOOD COUNT (AUTO) 12.8 K/uL (4.3-11.0)
[2017-10-22 06:52] LABS: CALCIUM, SERUM 8.7 mg/dL (8.5-10.1); MAGNESIUM 2.2 mg/dL (1.8-2.4); PHOSPHORUS 2.8 mg/dL (2.5-4.9); POTASSIUM 3.4 mmol/L (3.5-5.1)
--- NOTE | 2017-10-22 07:00 | NUR ---
RN NOTE RECEIVED PT ON BED, A/Ox4, RESPIRATION EVEN AND UNLABORED, ON 2L O2 N/C , NO DISTRESS NOTED, ON TELE SB HR IN 40'S , R AC IV G 18 AND L WRIST IV SITE G 20, CDI, SR UP x3, CALL LIGHT WITHIN EASY REACH, BED LOCKED AND IN LOWEST POSITION , CONTINUE TO MONITOR
[2017-10-22] MEDS: IPRATROPIUM NEB FS 0.5 MG/2.5 ML AMPUL.NEB NEB SCH ×5 (07:21→23:30)
[2017-10-22] MEDS: ALBUTEROL FS 2.5 MG/3 ML VIAL.NEB NEB SCH ×4 (07:21→19:30)
[2017-10-22 08:00] VITALS: BP 143/68
--- NOTE | 2017-10-22 08:20 | NUR ---
RN NOTES PT KEPT NPO THIS AM FOR CT OF CHEST AND ABDOMEN WITH CONTRAST .
[2017-10-22] MEDS ORDERED: IOHEXOL-300 100 ML VIAL IV ONE (08:47)
[2017-10-22] MEDS ORDERED: IV NS 0.9% 500 ML IV ONE (08:47)
[2017-10-22] MEDS ORDERED: CT SWABBABLE VALVE TRANS SET 1 EA INFUS.SET MC ONE (08:47)
[2017-10-22] MEDS: THEOPHYLLINE TAB 24HR 400 MG TAB.SR. PO SCH (08:52)
[2017-10-22] MEDS: ASPIRIN EC 81 MG TABLET.DR PO SCH (08:52)
[2017-10-22] MEDS: LORATADINE 10 MG TABLET PO SCH (08:52)
[2017-10-22] MEDS: BENAZEPRIL HCL 20 MG TABLET PO SCH (08:52)
[2017-10-22] MEDS: MECLIZINE HCL 25 MG TABLET PO SCH ×3 (08:52→17:07)
[2017-10-22] MEDS: hydrALAZINE HCL 25 MG TABLET PO SCH ×3 (08:54→17:08)
[2017-10-22] MEDS: MONTELUKAST SODIUM (10MG) 10 MG TABLET PO SCH (08:54)
[2017-10-22] MEDS: ENOXAPARIN SODIUM 40 MG/0.4 ML DISP.SYRIN SQ SCH (08:56)
[2017-10-22] MEDS: TAMSULOSIN 0.4 MG CAP.SR.24H PO SCH (08:56)
[2017-10-22] MEDS: BLOOD SUGAR DIAGNOSTIC 1 EACH STRIP IN SCH ×4 (08:59→21:27)
[2017-10-22] MEDS: CARVEDILOL 12.5 MG TABLET PO SCH ×2 (09:00→21:28)
[2017-10-22] MEDS: INSULIN REGULAR, HUMAN 100 UNIT/ML 3 ML VIAL SQ PRN ×3 (09:05→17:07)
[2017-10-22] MEDS: INSULIN NPH, HUMAN ISOPHANE 100 UNIT/ML CARTRIDGE SQ SCH ×2 (09:10→21:29)
[2017-10-22] MEDS: predniSONE 20 MG TABLET PO SCH (09:13)
--- NOTE | 2017-10-22 09:30 | NUR ---
RN NOTE BP 143/68 HR IN 50'S, COREG HELD PER DR WILLSON. CONTINUE TO MONITOR .
[2017-10-22] MEDS ORDERED: POTASSIUM CHLORIDE 20 MEQ TAB.PRT.SR PO SCH (10:00)
[2017-10-22 12:00] VITALS: BP 139/70
--- NOTE | 2017-10-22 15:30 | NUR ---
RN NOTES FOUND A BOTTLE OF MEDS ON THE PT BED , PT STATED THAT HE WILL TAKE HIS OWN THEOPHYLLINE IF HE NEEDS IT. EXPLAINED TO PT HOW IMPORTANT IT IS TO FOLLOW THE PLAN OF CARE AND MD ORDERS WHILE HE IS IN THE HOSPITAL . PT ADVISED THAT MEDS HAS TO GO TO PHARMACY AND BE LOCKED. BUT PT REFUSED TO GIVE HIS MEDS AND STATED, WILL KEEP THEM IN HIS DRAWER AT THE BED SIDE AND WILL NOT TAKE IT . DR WILLSON NOTIFED .
[2017-10-22 16:00] VITALS: BP 132/75
[2017-10-22] MEDS: SIMVASTATIN 40 MG TABLET PO SCH (17:07)
--- NOTE | 2017-10-22 18:41 | NUR ---
RN NOTES PT STABLE, UP TO BATHROOM INDEPENDENTLY ,L UPPER ARM IV SITE CDI, NO SIGNIFICANT CHANGES NOTED ON THIS SHIFT. WILL ENDOSE TO ICE SKATING TEACHER NURSE FOR ZAC .
--- NOTE | 2017-10-22 19:20 | NUR ---
RN NOTES RECEIVED PT IN BED, AWAKE, A/O X 4, VERBALLY RESPONSIVE. PT USING LAPTOP AT THIS TIME. NO DISTRESS, NO SOB NOTED AT THIS TIME. NO C/O PAIN OR DISCOMFORT AT THIS TIME. IV SITE ON MELITA INTACT AND PATENT, NO S/S OF INFILTRATION NOTED. NO S/S OF HYPO/ HYPERGLYCEMIA NOTED. SAFETY PRECAUTIONS OBSERVED. ALL NEEDS ATTENDED AND MET. CALL LIGHT WITHIN REACH. WILL CONT TO MONITOR.
[2017-10-22 20:00] VITALS: BP 122/58
--- NOTE | 2017-10-22 20:30 | NUR ---
PT REFUSED BREATHING TX AT THIS TIME. RISK AND BENEFITS EXPLAINED, PT STILL REFUSED X 3. WILL CONT TO MONITOR.
--- NOTE | 2017-10-22 21:00 | NUR ---
JO SUTTON AT BEDSIDE, ABLE TO TALK TO THE PT IN UKRAINIAN, AND ABLE TO TRANSLATE.
[2017-10-22] MEDS: *INSULIN REGULAR(HUMULIN R)HUM 100 UNIT/ML VIAL SQ PRN (21:31)
[2017-10-23] VITALS (7 sets, daily range): BP systolic 118–158; BP diastolic 47–80
--- NOTE | 2017-10-23 | NUR ---
RT NOTE PATIENT REFUSED HHN TX. RN NOTIFIED. PATIENT REFUSING BIPAP AT THIS TIME. EXPLAINED BENEFITS OF BIPAP BUT PATIENT REFUSED ANYWAY. RN AWARE. PATIENT SPO2 95% ON 2LNC. WILL CONTINUE TO MONITOR.
--- NOTE | 2017-10-23 00:05 | NUR ---
PT REFUSED BREATHING TX AND BIPAP AT THIS TIME, PT VERBALIZED, I'M TRYING TO SLEEP RIGHT NOW." RISK AND BENEFITS EXPLAINED, PT STILL REFUSED X3. PT'S 02 SAT : 95 % AT THIS TIME, ON 02 @2LPM VIA NC. DENIES DISTRESS NOR SOB AT THIS TIME. WILL CONT TO MONITOR. CALL LIGHT WITHIN REACH.
[2017-10-23] MEDS: IPRATROPIUM NEB FS 0.5 MG/2.5 ML AMPUL.NEB NEB SCH ×6 (04:42→23:22)
--- NOTE | 2017-10-23 06:00 | NUR ---
PT HAS A MEDICATION INSIDE HIS DRAWER, BUT REFUSED TO HAVE IT CHECKED, EXPLAIN TO THE PT REGARDING HOSPITAL POLICY REGARDING HOME MEDS, BUT PT STILL REFUSED TO HAVE IT CHECKED AND TO GIVE IT TO THE PHARMACY, RISK AND BENEFITS EXPLAINED, PT STILL REFUSED X 3. CHARGE NURSE SHAQ ORTEGA. PT IS A/O X 4, VERBALLY RESPONSIVE, PER PT HE WILL NOT OPEN AND TAKE ANY MEDICATION FROM THAT BOTTLE.
--- NOTE | 2017-10-23 06:42 | NUR ---
EARLY INTERVENTIONIST NOTES PT SITTING UP IN BED, AWAKE, A/O X 4. VERBALLY RESPONSIVE. PT USING LAPTOP AT THIS TIME. NO DISTRESS, NO SOB NOTED AT THIS TIME. NO C/O PAIN OR DISCOMFORT AT THIS TIME. IV SITE ON MELITA INTACT AND PATENT, NO S/S OF INFILTRATION NOTED. NO S/S OF HYPO/ HYPERGLYCEMIA NOTED. SAFETY PRECAUTIONS OBSERVED. ALL NEEDS ATTENDED AND MET. CALL LIGHT WITHIN REACH. WILL ENDORSE TO NEXT SHIFT FOR ZAC.
[2017-10-23 07:08] LABS: BASOPHILS % (AUTO) 0.3 % (0.0-2.0); EOSINOPHILS % (AUTO) 0.5 % (0.0-6.0); HEMATOCRIT 46 % (39-51); HEMOGLOBIN 15.3 g/dL (13.5-17.5); LYMPHOCYTES # (AUTO) 3.2 /CMM (0.8-4.8); LYMPHOCYTES % (AUTO) 29.5 % (20.0-44.0); MEAN CORPUSCULAR HGB CONC 34 g/dl (31.0-36.0); MEAN CORPUSCULAR VOLUME 92 fL (80-96); MONOCYTES # (AUTO) 0.9 /CMM (0.1-1.30); NEUTROPHILS # (AUTO) 6.6 /CMM (1.8-8.9); NEUTROPHILS % (AUTO) 61.7 % (43.0-81.0); PLATELET COUNT (AUTO) 227 /CMM (150-450); RDW COEFFICIENT OF VARIATION 13.4 (11.5-15.0); RED BLOOD CELL COUNT(AUTO) 4.99 MIL/uL (4.5-6.0); WHITE BLOOD COUNT (AUTO) 10.7 K/uL (4.3-11.0)
[2017-10-23 07:32] LABS: CALCIUM, SERUM 8.8 mg/dL (8.5-10.1); CREATININE 1.1 mg/dL (0.6-1.3); POTASSIUM 3.5 mmol/L (3.5-5.1)
[2017-10-23] MEDS: ALBUTEROL FS 2.5 MG/3 ML VIAL.NEB NEB SCH ×4 (07:44→19:43)
--- NOTE | 2017-10-23 08:00 | NUR ---
TELE1/RN AM SHIFT INITIAL NOTES RECEIVED PT AWAKE SITTING IN BED, PT A/O X 4, DENIES ANY SYMPTOMS, NO ACUTE CHANGE OF CONDITION NOTED. ON 2L O2 VIA N/C SATURATING @ 96%, NOTED WHEEZING LUNG SOUNDS. ON TELE WITH SINUS RHYTHM WITH PVCs and BBB, HR 80. IV SITE FLUSHED, PATENT WITH NOS/S OF INFECTION. PT REFUSED SCHEDULED PREDNISONE, RISK AND BENEFITS EXPLAINED, PT STILL REFUSED, PER PT HIS BLOOD GLUCOSE WILL RISE, WILL NOTIFY PRIMARY MD. PT IS COMFORTABLE OTHER SCHEDULED AM MEDS TO BE GIVEN. CL WITHIN REACHED AND SAFETY MAINTAINED. ON GOING MONITORING.
[2017-10-23] MEDS: BLOOD SUGAR DIAGNOSTIC 1 EACH STRIP IN SCH ×4 (08:23→22:04)
[2017-10-23] MEDS: predniSONE 20 MG TABLET PO SCH (09:00)
[2017-10-23] MEDS: INSULIN NPH, HUMAN ISOPHANE 100 UNIT/ML CARTRIDGE SQ SCH ×2 (09:05→22:10)
[2017-10-23] MEDS: INSULIN REGULAR, HUMAN 100 UNIT/ML 3 ML VIAL SQ PRN ×3 (09:06→18:56)
[2017-10-23] MEDS: ENOXAPARIN SODIUM 40 MG/0.4 ML DISP.SYRIN SQ SCH (09:07)
[2017-10-23] MEDS: BENAZEPRIL HCL 20 MG TABLET PO SCH (09:09)
[2017-10-23] MEDS: MECLIZINE HCL 25 MG TABLET PO SCH ×3 (09:09→18:53)
[2017-10-23] MEDS: ASPIRIN EC 81 MG TABLET.DR PO SCH (09:09)
[2017-10-23] MEDS: MONTELUKAST SODIUM (10MG) 10 MG TABLET PO SCH (09:09)
[2017-10-23] MEDS: hydrALAZINE HCL 25 MG TABLET PO SCH ×3 (09:09→18:53)
[2017-10-23] MEDS: CARVEDILOL 12.5 MG TABLET PO SCH ×2 (09:10→22:08)
[2017-10-23] MEDS: TAMSULOSIN 0.4 MG CAP.SR.24H PO SCH (09:10)
[2017-10-23] MEDS: LORATADINE 10 MG TABLET PO SCH (09:10)
[2017-10-23] MEDS: THEOPHYLLINE TAB 24HR 400 MG TAB.SR. PO SCH (09:11)
--- NOTE | 2017-10-23 10:30 | NUR ---
TELE1/RN ROUNDS - DR. WILLSON UPDATED PT'S CONDITION. PT SEEN & EXAMINED BY DR. WILLSON. NO NEW ORDERS RECEIVED AT THIS TIME. MONITORING CONTINUED.
[2017-10-23] MEDS ORDERED: PRED20TA PO (11:24)
[2017-10-23] MEDS ORDERED: THEOPHYLLINE PO (11:24)
[2017-10-23] MEDS ORDERED: LEVO750T21 PO (11:29)
--- NOTE | 2017-10-23 12:00 | NUR ---
TELE1/RN ROUNDS - DR. MARTINEZ: D/C ON HOLD PT SEEN & EXAMINED BY DR. MARTINEZ, NOTED STILL WHEEZING, PER MD HOLD D/C ORDER, PRIMARY MD TO BE NOTIFIED. MONITORING CONTINUED.
[2017-10-23] MEDS: SIMVASTATIN 40 MG TABLET PO SCH (18:52)
--- NOTE | 2017-10-23 19:30 | NUR ---
TELE1/RN AM SHIFT END NOTES ALL NEEDS MET. NO ACUTE CHANGE OF CONDITION NOTED DURING THE SHIFT. PT ENDORSED TO PM NURSE TO CONTINUE CARE. CL WITHIN REACHED AND SAFETY MAINTAINED.
--- NOTE | 2017-10-23 19:50 | NUR ---
MG RN NOTES RECEIVED BEDSIDE REPORT . PT AWAKE SITTING IN BED, A/O X 4, DENIES ANY PAIN OD DISCOMFORT AT THIS TIME, NO SOB, ON 2L O2 VIA N/C SATURATING @ 97%, NOTED WHEEZING LUNG SOUNDS. ON TELE WITH SINUS RHYTHM WITH PVCs and BBB, HR 68. IV SITE FLUSHED, PATENT WITH NO S/S OF INFECTION. ALL SAFETY MEASURES ARE IMPLEMENTED, BED IN LOW, LOCKED POSITION, CALL LIGHT WITHIN REACH. WILL CONT. MONITORING.
--- NOTE | 2017-10-23 21:41 | NUR ---
RT NOTE LATE ENTRY. @ 21:30 PT PLACED ON CPAP. NO RESP DISTRESS OR SOB NOTED. MEPALEX PLACED. PENNIE QUEVEDO NOTIFIED. Addendum: 10/23/17 at 2150 by SHAYY VAUGHAN RT PER ORDERS.
[2017-10-23] MEDS: *INSULIN REGULAR(HUMULIN R)HUM 100 UNIT/ML VIAL SQ PRN (22:14)
--- NOTE | 2017-10-23 23:15 | NUR ---
RT NOTE PT REQUESTED TO BE TAKEN OFF CPAP AT THIS TIME. PT PLACED ON NC. NO RESP DISTRESS OR SOB NOTED. RN SAE NOTIFIED.
[2017-10-24] VITALS: BP 150/59
[2017-10-24 00:36] VITALS: BP 150/59
[2017-10-24] MEDS: IPRATROPIUM NEB FS 0.5 MG/2.5 ML AMPUL.NEB NEB SCH ×3 (03:05→11:27)
[2017-10-24 04:00] VITALS: BP 145/55
--- NOTE | 2017-10-24 07:10 | NUR ---
WASTE DISPOSAL ATTENDANT OPENING NOTES RECEIVED PT IN BED IN SEMI FOWLERS POSITION, ALERT, STILL NOTED WITH WHEEZES, SINUS SEBASTIAN ON TELE MONITOR, NO C/O PAIN, ON 2LPM O2 VIA NC, TOLERATING WELL, WITH MELITA SL, INTACT. SAFETY MEASURES OBSERVED, CALL LIGHT WITHIN REACH, WILL CONTINUE TO MONITOR
[2017-10-24] MEDS: ALBUTEROL FS 2.5 MG/3 ML VIAL.NEB NEB SCH ×2 (07:29→11:27)
[2017-10-24 08:00] VITALS: BP_SYST 138; BP_SYST 151; BP_DIAS 62; BP_DIAS 68
[2017-10-24] MEDS: BLOOD SUGAR DIAGNOSTIC 1 EACH STRIP IN SCH ×2 (08:13→12:21)
[2017-10-24] MEDS: MONTELUKAST SODIUM (10MG) 10 MG TABLET PO SCH (08:56)
[2017-10-24] MEDS: ASPIRIN EC 81 MG TABLET.DR PO SCH (08:56)
[2017-10-24] MEDS: MECLIZINE HCL 25 MG TABLET PO SCH ×2 (08:56→12:24)
[2017-10-24] MEDS: TAMSULOSIN 0.4 MG CAP.SR.24H PO SCH (08:56)
[2017-10-24] MEDS: hydrALAZINE HCL 25 MG TABLET PO SCH ×2 (08:58→12:28)
[2017-10-24] MEDS: CARVEDILOL 12.5 MG TABLET PO SCH (08:58)
[2017-10-24] MEDS: BENAZEPRIL HCL 20 MG TABLET PO SCH (08:59)
[2017-10-24] MEDS: LORATADINE 10 MG TABLET PO SCH (08:59)
[2017-10-24] MEDS ORDERED: predniSONE 20 MG TABLET PO SCH (09:00)
[2017-10-24] MEDS: THEOPHYLLINE TAB 24HR 400 MG TAB.SR. PO SCH (09:03)
[2017-10-24] MEDS: INSULIN NPH, HUMAN ISOPHANE 100 UNIT/ML CARTRIDGE SQ SCH (09:06)
[2017-10-24] MEDS: ENOXAPARIN SODIUM 40 MG/0.4 ML DISP.SYRIN SQ SCH (09:07)
[2017-10-24 12:00] VITALS: BP_SYST 178; BP_SYST 181; BP_DIAS 78; BP_DIAS 82
--- NOTE | 2017-10-24 12:15 | NUR ---
RN NOTES RECHECKED PT'S BP; YD=417/82, STILL PT DENIES SOB AND CHEST PAIN, PRN HYDRALAZINE GIVEN
[2017-10-24] MEDS: INSULIN REGULAR, HUMAN 100 UNIT/ML 3 ML VIAL SQ PRN (12:18)
[2017-10-24 12:43] VITALS: BP 178/82
--- NOTE | 2017-10-24 13:20 | NUR ---
RN NOTES RECHECKED PT'S BP, CURRENT BP 143/75. STILL NO C/O CHEST PAIN AND SOB, WILL CONTINUE TO MONITOR. NOTIFIED DR. WILLSON REGARDING EPISODE OF INCREASE BP, INFORMED MD THAT HYDRALAZINE PO PRN GIVEN AND CURRENT BP IS 143/75. PER MD STILL OK TO D/C
--- NOTE | 2017-10-24 15:05 | NUR ---
MANAGER TARGET NOTES D/C PT TO HOME IN STABLE CONDITION ACCOMPANIED BY RAFAELA, FAMILY MEMBER. NO SOB AND C/O PAIN. IV LINE REMOVED, IV CATH INTACT, NO SIGNS OF BLEEDING OR INFECTION NOTED. PRESSURE DRESSING APPLIED. D/C INSTRUCTIONS AND HOME MEDS GIVEN TO PT. PT VERBALIZED UNDERSTANDING. SAFETY MEASURES OBSERVED AT ALL TIMES. D/C
--- NOTE | 2017-10-24 15:05 | NUR ---
PENNIE NOTES 12 NOONJO CHECKED PT'S BP. BP= 181/78, PT DENIES SOB AND CHEST PAIN. WILL RECHECKED IN 15 MIN AFTER PT RESTED Addendum: 10/24/17 at 1512 by VICKY YEAGER RN NOTES IS FOR 1200 ENTRY
== END 2017-10-24 15:05 | disposition home or self-care (01) | DRG 189 ==
LOC: ER 21:28 → TELE 10-20 00:23 → ICU 10-20 15:06 → TELE1 10-21 16:43
PROVIDERS: ADMIT Nurse Practitioner Acute Care; ATTEND Nurse Practitioner Acute Care
DX: J96.01 Acute respiratory failure with hypoxia (principal); J45.901 Unspecified asthma with (acute) exacerbation; C85.90 Non-Hodgkin lymphoma, unspecified, unspecified site; Z68.41 Body mass index [BMI] 40.0-44.9, adult; K74.60 Unspecified cirrhosis of liver; I10 Essential (primary) hypertension; E11.9 Type 2 diabetes mellitus without complications; J20.9 Acute bronchitis, unspecified; Z90.79 Acquired absence of other genital organ(s); Z87.891 Personal history of nicotine dependence; Z85.47 Personal history of malignant neoplasm of testis; Z79.82 Long term (current) use of aspirin; Z79.4 Long term (current) use of insulin; E11.65 Type 2 diabetes mellitus with hyperglycemia; Z79.899 Other long term (current) drug therapy; D64.9 Anemia, unspecified; E83.42 Hypomagnesemia; G47.33 Obstructive sleep apnea (adult) (pediatric); N40.0 Benign prostatic hyperplasia without lower urinary tract symptoms; T38.0X5A Adverse effect of glucocorticoids and synthetic analogues, initial encounter; Y92.009 Unspecified place in unspecified non-institutional (private) residence as the place of occurrence of the external cause; D72.829 Elevated white blood cell count, unspecified; I50.9 Heart failure, unspecified; I11.0 Hypertensive heart disease with heart failure; E66.01 Morbid (severe) obesity due to excess calories
CPT/HCPCS: 36415; 36600; 70220-TC; 71045-TC; 71270-TC; 74178; 80048-TC; 80053-TC; 80061-TC; 80076-TC; 82105; 82306; 82803-TC; 82947-TC; 82962-TC; 83605-TC; 83615-TC; 83735-TC; 83880; 84100-TC; 84439-TC; 84443-TC; 84484-TC; 84702-TC; 85025-TC; 85730-TC; 87040-TC; 87081-TC; 93307-TC; 94762-TC; 94799-TC; A4606; J0456; J0696; J1650; J1815; J1940; J2920; J2930; J3475; J7030; J7040; J7060; J8597; Q9967; Z7610

== ENCOUNTER 2017-10-29 13:19 | Outpatient (CLI) | payer MEDICARE, MEDICAID ==
[~2017-10-29 13:19] MED LIST changes: +LEVO750T21 PO; +PRED20TA PO; +THEOPHYLLINE PO
[2017-10-29 13:33] VITALS: BP 171/75
== END 2017-10-29 23:59 | disposition home or self-care (01) ==
LOC: MSC 13:19
PROVIDERS: ATTEND Internal Medicine
DX: G47.33 Obstructive sleep apnea (adult) (pediatric) (principal); Z99.89 Dependence on other enabling machines and devices; E11.65 Type 2 diabetes mellitus with hyperglycemia; Z79.4 Long term (current) use of insulin; I11.0 Hypertensive heart disease with heart failure; I50.30 Unspecified diastolic (congestive) heart failure; Z87.891 Personal history of nicotine dependence; D64.9 Anemia, unspecified; K74.60 Unspecified cirrhosis of liver; Z85.47 Personal history of malignant neoplasm of testis; E66.01 Morbid (severe) obesity due to excess calories

== ENCOUNTER 2017-12-14 12:40 | Inpatient (IN) | payer MEDICARE, MEDICAID ==
[~2017-12-14] VITALS: Ht 165.1 cm; Wt 113.5 kg
--- NOTE | 2017-12-14 12:45 | NUR ---
AAOX3, BIB FAMILY C/O RIGHT SIDED FACIAL/ARM AND LEG NUMBNESS SINCE 9 PM LAST NIGHT. RR IS EVEN AND UNLABORED WITH NAD NOTED. FACE IS SYMMETRICAL. DR COREAS AT BS FOR EVAL. PLACED ON THE MONITOR.
--- NOTE | 2017-12-14 12:49 | NUR ---
ACTIVATED CODE STROKE
--- NOTE | 2017-12-14 12:50 | NUR ---
CALLED [facility] TELESTROKE HOTLINE - AWAITING CALL BACK FROM ASSIGNED NEUROLOGIST DR. GOMEZ
--- NOTE | 2017-12-14 12:54 | NUR ---
TRANSPORTED FOR CT VIA [facility].
[2017-12-14 12:55] LABS: BASOPHILS % (AUTO) 0.4 % (0.0-2.0); EOSINOPHILS % (AUTO) 3.9 % (0.0-6.0); HEMATOCRIT 46 % (39-51); HEMOGLOBIN 15.1 g/dL (13.5-17.5); LYMPHOCYTES # (AUTO) 2.1 /CMM (0.8-4.8); LYMPHOCYTES % (AUTO) 23.5 % (20.0-44.0); MEAN CORPUSCULAR HEMOGLOBIN 29 PG (26.0-33.0); MEAN CORPUSCULAR HGB CONC 33 g/dl (31.0-36.0); MEAN CORPUSCULAR VOLUME 89 fL (80-96); MONOCYTES # (AUTO) 0.6 /CMM (0.1-1.30); NEUTROPHILS # (AUTO) 5.8 /CMM (1.8-8.9); NEUTROPHILS % (AUTO) 65.2 % (43.0-81.0); PLATELET COUNT (AUTO) 253 /CMM (150-450); RDW COEFFICIENT OF VARIATION 13.2 (11.5-15.0); RED BLOOD CELL COUNT(AUTO) 5.16 MIL/uL (4.5-6.0); WHITE BLOOD COUNT (AUTO) 8.8 K/uL (4.3-11.0)
[2017-12-14] MEDS ORDERED: IOHEXOL-350 100 ML VIAL IV ONE (12:58)
[2017-12-14] MEDS ORDERED: IV NS 0.9% 250 ML IV ONE (12:58)
[2017-12-14] MEDS ORDERED: CT SWABBABLE VALVE TRANS SET 1 EA INFUS.SET MC ONE (12:58)
[2017-12-14 13:03] LABS: CALCIUM, SERUM 9.4 mg/dL (8.5-10.1); CARBON DIOXIDE 33 mmol/L (21-32); CHLORIDE 105 mmol/L (98-107); CREATININE 1.2 mg/dL (0.6-1.3); GLUCOSE 81 mg/dL (74-106); POTASSIUM 3.6 mmol/L (3.5-5.1); SODIUM SERUM 142 mmol/L (136-145); UREA NITROGEN, BLOOD 24 mg/dL (7-18)
[2017-12-14 13:08] LABS: INR 1.1 (0.85-1.15)
[2017-12-14 13:11] LABS: TROPONIN I < 0.017 ng/mL (0.00-0.056)
--- NOTE | 2017-12-14 13:11 | NUR ---
PATIENT IS BACK FROM CT
[2017-12-14 13:15] LABS: CHOLESTEROL 120 mg/dL (<200); HDL CHOLESTEROL 42 mg/dL (40-60); LDL 68 mg/dL (0-99); TRIGLYCERIDES 122 mg/dL (30-150)
--- NOTE | 2017-12-14 13:55 | NUR ---
PAGED [employer] FOR PANEL - HOME BASED ASSISTANT ABIMAEL WILCOX
--- NOTE | 2017-12-14 14:27 | NUR ---
TELE 115-1
[2017-12-14] MEDS ORDERED: ASPIRIN 81 MG TAB.CHEW PO ONE (14:30)
[2017-12-14] MEDS ORDERED: ASPIRIN 81 MG TAB.CHEW ONE (14:43)
[2017-12-14] MEDS ORDERED: INSU100V27 SQ (14:44)
[2017-12-14] MEDS ORDERED: ROSU40TA PO (14:44)
[2017-12-14] MEDS ORDERED: INSU100I26 SQ (14:44)
[2017-12-14] MEDS ORDERED: FURO20TA4 PO (14:44)
[2017-12-14 16:00] VITALS: BP 167/83
[2017-12-14] MEDS ORDERED: IPRATROPIUM NEB FS 0.5 MG/2.5 ML AMPUL.NEB NEB SCH (16:00)
--- NOTE | 2017-12-14 16:49 | NUR ---
TEXTED DR. PINK FOR MRI APPROVAL.
--- NOTE | 2017-12-14 16:50 | NUR ---
OK MRI APPROVED.
[2017-12-14] MEDS ORDERED: hydrALAZINE HCL 25 MG TABLET PO SCH (17:00)
[2017-12-14] MEDS: methylPREDNISolone SOD SUCC 40 MG/ML VIAL IV SCH (17:06)
[2017-12-14] MEDS: BLOOD SUGAR DIAGNOSTIC 1 EACH STRIP IN SCH (17:14)
[2017-12-14] MEDS ORDERED: BLOOD SUGAR DIAGNOSTIC 1 EACH STRIP IN SCH (17:30)
--- NOTE | 2017-12-14 17:48 | NUR ---
RECEIVED PT FROM ER VIA LEANDRO, ALERT, AWAKE AND ORIENTED. MILD R FACIAL DROOP NOTED BUT SMILE SYMMETRICAL. PT HAS NO TEETH AND NO DENTURES. PT STATED HAVING TINGLING LIKE PINS AND NEEDLES ON R HAND AND WEAKNESS ON RIGHT LEG BUT THIGH FEELS NORMAL. HL ON LEFT AC. ON RA, BREATH SOUNDS CLEAR BUT LEFT UPPER LOBE WHEEZE EXPIRATORY. ABDOMEN ROUNDED, DISTENDED, PT IS OBESE. LAST BM 12/13/17. VOIDING USING URINAL. BLOOD SUGAR 153, NO SLIDING SCALE ORDERED. NO C/O PAIN. WILL INITIATE SCD'S ORDERED. BED LOW AND LOCKED. CALL LIGHT WITHIN REACHED. WILL CONT TO MONITOR.
[2017-12-14 20:00] VITALS: BP 156/86
--- NOTE | 2017-12-14 20:03 | NUR ---
2003 SPOKE WITH TELECOMMUNICATIONS SWITCH TECHNICIAN JYOTHI REGARDING STAT MRI ORDER FOR THE PATIENT HE SAID HE WILL HAVE SOMEONE DO IT. PRIMARY NURSE FIDELINA NOTIFIED.
--- NOTE | 2017-12-14 21:13 | NUR ---
2112 CALLED RADIOLOGY AGAIN TO FOLLOW UP ON MRI ORDER SPOKE WITH DILLAN SHE SAID TECH WILL BE HERE AT 2199.
[2017-12-14] MEDS: MONTELUKAST SODIUM (10MG) 10 MG TABLET PO SCH (22:01)
[2017-12-14] MEDS: TAMSULOSIN 0.4 MG CAP.SR.24H PO SCH (22:01)
--- NOTE | 2017-12-14 22:21 | NUR ---
2221 TAKEN TO MRI VIA WHEELCHAIR ON ACLS PROTOCOL. PATIENT AWAKE ALERT AND ORIENTED ACCOMPANIED BY PENNIE KITCHEN, JO DAY AND K [employer] SCHOOL PROFESSIONAL.
--- NOTE | 2017-12-14 22:55 | NUR ---
5647 PATIENT IS BACK IN THE ROOM FROM MRI. AWAKE AND ORIENTED, NO COMPLAINT OF ANY DISCOMFORT.
[2017-12-15] VITALS (7 sets, daily range): BP systolic 145–186; BP diastolic 64–85
[2017-12-15] MEDS: BLOOD SUGAR DIAGNOSTIC 1 EACH STRIP IN SCH (00:06)
[2017-12-15] MEDS ORDERED: DEXTROSE 50%-WATER 50 ML DISP.SYRIN IV PRN (00:30)
--- NOTE | 2017-12-15 00:35 | NUR ---
SPOKE TO DENISE RACHEL. PT WITH BS 387, SUGAR CHECK CHANGED TO ACHS WITH SLIDING SCALE. COVERAGE ADMIN ORDERED. NO S/S OF HYPERGLYCEMIA. EMAIL MARKETING INTERN AWARE OF MRI RESULT.
[2017-12-15] MEDS: *INSULIN REGULAR(HUMULIN R)HUM 100 UNIT/ML VIAL SQ PRN ×2 (00:50→19:51)
[2017-12-15] MEDS: BLOOD SUGAR DIAGNOSTIC 1 EACH STRIP VI SCH ×5 (00:55→19:49)
[2017-12-15 06:23] LABS: BASOPHILS % (AUTO) 0.2 % (0.0-2.0); HEMATOCRIT 45 % (39-51); HEMOGLOBIN 15.1 g/dL (13.5-17.5); LYMPHOCYTES % (AUTO) 10.7 % (20.0-44.0); MEAN CORPUSCULAR HEMOGLOBIN 30 PG (26.0-33.0); MEAN CORPUSCULAR HGB CONC 33 g/dl (31.0-36.0); MEAN CORPUSCULAR VOLUME 91 fL (80-96); MONOCYTES # (AUTO) 0.2 /CMM (0.1-1.30); MONOCYTES % (AUTO) 1.9 % (2.0-12.0); NEUTROPHILS # (AUTO) 8.4 /CMM (1.8-8.9); NEUTROPHILS % (AUTO) 87.2 % (43.0-81.0); PLATELET COUNT (AUTO) 235 /CMM (150-450); RDW COEFFICIENT OF VARIATION 14.1 (11.5-15.0); RED BLOOD CELL COUNT(AUTO) 4.97 MIL/uL (4.5-6.0); WHITE BLOOD COUNT (AUTO) 9.7 K/uL (4.3-11.0)
[2017-12-15 06:29] LABS: INR 1.14 (0.87-1.13)
[2017-12-15 06:40] LABS: CALCIUM, SERUM 9.1 mg/dL (8.5-10.1); CREATININE 1.1 mg/dL (0.6-1.3); POTASSIUM 4.1 mmol/L (3.5-5.1)
[2017-12-15 06:49] LABS: THYROID STIMULATING HORMONE 1.043 uIU/mL (0.358-3.74)
--- NOTE | 2017-12-15 07:30 | NUR ---
INITIAL NOTES: RECEIVED PT ON BED, ALERT, AWAKE AND ORIENTED X 4. MILD R FACIAL DROOP NOTED BUT SMILE SYMMETRICAL. PT HAS NO TEETH AND NO DENTURES. PT STATED HAVING TINGLING LIKE PINS AND NEEDLES ON R HAND AND WEAKNESS ON RIGHT LEG BUT THIGH FEELS NORMAL. HL ON LEFT AC. ON RA, BREATH SOUNDS CLEAR BUT LEFT UPPER LOBE WHEEZE EXPIRATORY. ABDOMEN ROUNDED, DISTENDED, NO C/O PAIN. WILL INITIATE SCD'S ORDERED. BED LOW AND LOCKED. CALL LIGHT WITHIN REACHED. WILL CONT TO MONITOR.
[2017-12-15] MEDS: INSULIN REGULAR, HUMAN 100 UNIT/ML 3 ML VIAL SQ PRN (08:38)
[2017-12-15] MEDS: methylPREDNISolone SOD SUCC 40 MG/ML VIAL IV SCH ×2 (08:39→09:00)
[2017-12-15] MEDS: ASPIRIN EC 81 MG TABLET.DR PO SCH (08:40)
[2017-12-15] MEDS ORDERED: BENAZEPRIL HCL 20 MG TABLET PO SCH (09:00)
[2017-12-15] MEDS ORDERED: CLOPIDOGREL BISULFATE 75 MG TABLET PO ONE (10:00)
[2017-12-15] MEDS: INSULIN GLARGINE, 100 UNIT/ML CARTRIDGE SQ SCH ×2 (11:00→11:13)
[2017-12-15] MEDS: THEOPHYLLINE TAB 24HR 400 MG TAB.SR. PO SCH (11:30)
--- NOTE | 2017-12-15 11:40 | NUR ---
Process Improvement Consultant consult was requested by Dr. Carolina for stroke. Patient is a 67 year old male who was admitted to [facility] for stroke. Pt reported that his emergency contact is his brother, Asael ([phone]), and will drive him home upon discharge from the hospital. The patient lives with a relative at [address] [place] [address]. Pt said "my Colombian is not so good" and communicated that he lives with a cousin. Patient was alert and oriented x4. Pt reported that he has had home health for over a year. Pt denied prior dialysis output. Pt reported to having a history of stroke previously. Pt denied symptoms of depression, anxiety or any other psychological distress. No social work program coordinator needed. SW available if needed.
[2017-12-15] MEDS: INSULIN LISPRO/ASPART 100 UNIT/ML CARTRIDGE SQ SCH ×2 (12:21→17:00)
[2017-12-15] MEDS: hydrALAZINE HCL 10 MG TABLET PO PRN ×2 (12:24→21:49)
[2017-12-15] MEDS ORDERED: INSULIN LISPRO/ASPART 100 UNIT/ML CARTRIDGE SQ SCH (13:00)
[2017-12-15] MEDS: BUDESONIDE RESPULE INH 0.25 MG/2 ML AMPUL.NEB NEB SCH ×2 (13:30→19:18)
[2017-12-15] MEDS: IPRATROPIUM NEB FS 0.5 MG/2.5 ML AMPUL.NEB NEB SCH ×2 (13:49→19:16)
--- NOTE | 2017-12-15 16:12 | NUR ---
Patient is alert and pleasant. Stated he lives in a townhouse with a roommate at [id number] [place] [id number]. He is ambulatory and independent with adl's. He own a walker if needed. His brother Asael ([phone]),will provide ride when discharge. Addendum: 12/15/17 at 1612 by SCOTTIE FERNANDEZ RN Amended: Links added.
--- NOTE | 2017-12-15 18:08 | NUR ---
CLOSING NOTES: PT ALERT AND ORIENTED X4 PT UP TO BATH ROOM SEVERAL TIMES EXPLAINED IN [facility] THAT PT SHOULD USE CALL WALSH. PT EVALUATED BY PT AND NEUROLOGIST CAME BY TALKING TP PT. RN AT BEDSIDE FOR OVER AN HOUR EXPLAIN STROKE PROCESS, STROKE MEDICATIONS ORDERED. AND ENCOURAGED PT INVOLVEMENT. SPEAKING TO PT OVER DIABETIC MEDICATION PT TAKES AT HOME. ALL EFFORTS WERE MADE TO ACCOMMODATE PT. PT REMAINS SAFE ALL SHIFT. ENDORSE CARE TO PLANT ETIOLOGIST RN.
--- NOTE | 2017-12-15 19:46 | NUR ---
RN NOTE PER PATIENT REQUEST PATIENT WANTS ACCU-CHECK 1 HOUR EARLIER, MD IS AWARE, CHARGE NURSE IS AWARE
[2017-12-15] MEDS: TAMSULOSIN 0.4 MG CAP.SR.24H PO SCH (21:49)
[2017-12-15] MEDS: MONTELUKAST SODIUM (10MG) 10 MG TABLET PO SCH (21:49)
[2017-12-16] VITALS (7 sets, daily range): BP systolic 99–171; BP diastolic 58–89
[2017-12-16] MEDS: IPRATROPIUM NEB FS 0.5 MG/2.5 ML AMPUL.NEB NEB SCH ×4 (01:22→19:27)
--- NOTE | 2017-12-16 01:22 | NUR ---
RN NOTE PATIENT IS ALERT/ORIENTED X 4, PATIENT REFUSED BIPAP, EXPLAINED ALL RISKS AND BENEFITS, STILL REFUSED, CHARGE NURSE IS AWARE
--- NOTE | 2017-12-16 01:22 | NUR ---
rt notes pt refused tx at this time. no distress noted on 2 lpm cannula. cpap also refused. will notify rn.
[2017-12-16 06:33] LABS: CALCIUM, SERUM 8.7 mg/dL (8.5-10.1); CREATININE 1.2 mg/dL (0.6-1.3); POTASSIUM 3.8 mmol/L (3.5-5.1)
[2017-12-16] MEDS: BUDESONIDE RESPULE INH 0.25 MG/2 ML AMPUL.NEB NEB SCH ×2 (07:44→19:45)
--- NOTE | 2017-12-16 08:00 | NUR ---
MG RN INITIAL NOTES: RECEIVED BEDSIDE REPORT FROM PM NURSE. PT ON BED, ALERT, AWAKE AND ORIENTED X 4. MILD R FACIAL DROOP NOTED BUT SMILE SYMMETRICAL. PT HAS NO TEETH AND NO DENTURES. PT STATED HAVING TINGLING LIKE PINS AND NEEDLES ON R HAND AND FOREARM, WEAKNESS ON RIGHT LEG BUT THIGH FEELS NORMAL. IV [id number] NOTED ON LEFT AC PATIENT . ON RA WITH SPO2 OF 99%, BREATH SOUNDS CLEAR . ALL SAFETY MEASURES ARE IMPLEMENTED, BED IN LOW AND LOCKED POSITION. CALL LIGHT WITHIN REACHED. WILL CONT TO MONITOR.
[2017-12-16] MEDS: BLOOD SUGAR DIAGNOSTIC 1 EACH STRIP VI SCH ×4 (08:48→21:37)
[2017-12-16] MEDS: INSULIN GLARGINE, 100 UNIT/ML CARTRIDGE SQ SCH (09:00)
--- NOTE | 2017-12-16 09:00 | NUR ---
RN NOTES PATIENT REFUSED LANTUS INSULIN, SIGNALS COLLECTOR/ANALYST BOBBY NOTIFIED.
[2017-12-16] MEDS: INSULIN LISPRO/ASPART 100 UNIT/ML CARTRIDGE SQ SCH ×2 (09:06→18:31)
[2017-12-16] MEDS: CLOPIDOGREL BISULFATE 75 MG TABLET PO SCH (09:08)
[2017-12-16] MEDS: ASPIRIN EC 81 MG TABLET.DR PO SCH (09:08)
[2017-12-16] MEDS: ATORVASTATIN 40 MG TABLET PO SCH (09:08)
[2017-12-16] MEDS: THEOPHYLLINE TAB 24HR 400 MG TAB.SR. PO SCH (11:30)
--- NOTE | 2017-12-16 14:02 | NUR ---
PT REFUSED RESP TX AT THIS TIME. NO S/S OF SOB NOTED. WILL CONTINUE TO MONITOR PT Addendum: 12/16/17 at 1403 by LINA HIGHTOWER RT Amended: Links added.
--- NOTE | 2017-12-16 16:00 | NUR ---
MG RN NOTES PATIENT'S REPORT IS GIVEN TO PENNIE BETHEA FOR TRANSFER OF PATIENT CARE. PATIENT IS IN STABLE CONDITION, A/OX4, ON ROOM AIR WITH SPO2 OF 99%. LEFT AC 20G IV LINE IN PLACE , PATIENT, NO S&S OF INFILTRATION OR INFECTION.
--- NOTE | 2017-12-16 16:00 | NUR ---
RN NOTES RECEIVED REPORT FROM SAE CASPER FOR ZAC.PATIENT IN BED SLEEPING .NO SOB NO DISTRESS NOTED AT THIS TIME.WILL CONTINUE TO MONITOR.
[2017-12-16] MEDS: hydrALAZINE HCL 10 MG TABLET PO PRN (16:52)
[2017-12-16] MEDS: INSULIN REGULAR, HUMAN 100 UNIT/ML 3 ML VIAL SQ PRN (17:55)
--- NOTE | 2017-12-16 18:00 | NUR ---
RN NOTES PATIENT REFUSED SCD.EDUCATION GIVEN STILL REFUSING.
--- NOTE | 2017-12-16 18:30 | NUR ---
RN NOTES PATIENT HAD AN EPISODE PF ELEVATED BP OF 162/58 PRN HYDRALAZINE GIVEN.RECHECKED BP 156/80
--- NOTE | 2017-12-16 18:53 | NUR ---
RN CLOSING NOTES: PT ON BED, ALERT, AWAKE AND ORIENTED X 4. NO SOB NO DISTRESS NOTED AT THIS TIME.ON ROOM AIR SATURATING 96%. PT STATED HAVING TINGLING LIKE PINS AND NEEDLES ON R HAND AND FOREARM, WEAKNESS ON RIGHT LEG BUT THIGH FEELS NORMAL SINCE ADMISSION.NO CHANGES ALL DAY TODAY.DENIES PAIN. IV [id number] NOTED ON LEFT AC PATIENT . BREATH SOUNDS CLEAR . ALL SAFETY MEASURES ARE IMPLEMENTED, BED IN LOW AND LOCKED POSITION. CALL LIGHT WITHIN REACHED. WILL ENDORSE TO PM NURSE FOR ZAC.
--- NOTE | 2017-12-16 20:00 | NUR ---
RN NOTE BP OF 171/89 NOTED, RECHECKED MANUALLY 147/83, NOTIFIED DR YOUNGBLOOD NO NEW ORDERS GIVEN AT THIS TIME, WILL CONTINUE TO MONITOR PATIENT
--- NOTE | 2017-12-16 21:00 | NUR ---
RN NOTE PATIENT IS ALERT/ORIENTED X4, REFUSED NOCTURNAL CPAP, EXPLAINED ALL BENEFITS, STILL REFUSED, CHARGE NURSE IS AWARE
[2017-12-16] MEDS: *INSULIN REGULAR(HUMULIN R)HUM 100 UNIT/ML VIAL SQ PRN (21:43)
[2017-12-16] MEDS: TAMSULOSIN 0.4 MG CAP.SR.24H PO SCH (21:45)
[2017-12-16] MEDS: MONTELUKAST SODIUM (10MG) 10 MG TABLET PO SCH (21:46)
[2017-12-16] MEDS ORDERED: INSULIN GLARGINE, 100 UNIT/ML CARTRIDGE SQ SCH (22:00)
[2017-12-17] MEDS: IPRATROPIUM NEB FS 0.5 MG/2.5 ML AMPUL.NEB NEB SCH ×2 (01:30→07:35)
[2017-12-17 04:00] VITALS: BP 167/70
[2017-12-17] MEDS: hydrALAZINE HCL 10 MG TABLET PO PRN (04:40)
[2017-12-17 04:45] VITALS: BP 143/86
--- NOTE | 2017-12-17 04:45 | NUR ---
RN NOTE BP OF 167/70 AFTER ADMINISTRATION OF HYDRALIZINE 10MG PO BP 143/86
[2017-12-17 06:13] VITALS: BP 167/70
[2017-12-17 06:47] VITALS: BP 167/70
--- NOTE | 2017-12-17 06:55 | NUR ---
RN NOTE NO ACUTE CHANGES NOTED, PATIENT RESTED WELL AT NIGHT, NO DISTRESS NOTED, ALERT/ORIENTED X4, NEURO CHECKS DONE, ALL SAFETY MEASURES TAKEN, WILL ENDORSE TO AM SHIFT TO CONTINUE CARE
[2017-12-17] MEDS: BLOOD SUGAR DIAGNOSTIC 1 EACH STRIP VI SCH ×2 (07:29→12:26)
[2017-12-17] MEDS: BUDESONIDE RESPULE INH 0.25 MG/2 ML AMPUL.NEB NEB SCH (07:30)
[2017-12-17 08:00] VITALS: BP 166/83
--- NOTE | 2017-12-17 08:00 | NUR ---
MG RN INITIAL NOTES: RECEIVED BEDSIDE REPORT FROM PM NURSE. PT ON BED, ALERT, AWAKE AND ORIENTED X 4. MILD RIGHT FACIAL DROOP NOTED BUT SMILE SYMMETRICAL. PT HAS NO TEETH AND NO DENTURES. PT STATED HAVING TINGLING LIKE PINS AND NEEDLES ON R HAND AND FOREARM, WEAKNESS ON RIGHT LEG BUT THIGH FEELS NORMAL. IV [id number] NOTED ON LEFT UPPER ARM PATIENT . ON RA WITH SPO2 OF 99%, BREATH SOUNDS CLEAR . ALL SAFETY MEASURES ARE IMPLEMENTED, BED IN LOW AND LOCKED POSITION. CALL LIGHT WITHIN REACHED. WILL CONT TO MONITOR.
[2017-12-17] MEDS: INSULIN LISPRO/ASPART 100 UNIT/ML CARTRIDGE SQ SCH (08:03)
[2017-12-17] MEDS: CLOPIDOGREL BISULFATE 75 MG TABLET PO SCH (08:09)
[2017-12-17] MEDS: ASPIRIN EC 81 MG TABLET.DR PO SCH (08:09)
[2017-12-17] MEDS: ATORVASTATIN 40 MG TABLET PO SCH (08:09)
--- NOTE | 2017-12-17 09:30 | NUR ---
RN NOTES PATIENT'S BLOOD PRESSURE IS 166/83, HR-44. PATIENT IS REFUSING B/P MEDICATION HYDRALAZINE FOR NOW.
[2017-12-17] MEDS: THEOPHYLLINE TAB 24HR 400 MG TAB.SR. PO SCH (11:39)
--- NOTE | 2017-12-17 12:02 | NUR ---
MG RN NOTES PATIENT WAS SEEN BY SPECIAL PROCEDURES TECH BOBBY GARCIA AND BEING DISCHARGED HOME /SELF CARE. PATIENT IS IN STABLE CONDITION, A/OX4, VITAL SIGNS ARE WNL, NO SOB, NO COMPLAIN OF DISCOMFORT DURING MY SHIFT. EXIT CARE AND TEACHING PROVIDED , ALL THE MEDICATIONS SIDE EFFECTS AND ADVERSE EFFECTS EXPLAINED, FOLLOWUP WITH THE PRIMARY CARE PROVIDER AND PHYSICIAN WITHIN 3 DAYS, CONT. PHYSICAL THERAPY FOR 2 WEEKS. ALL NEEDS ARE ATTENDED, ALL SAFETY PRECAUTIONS ARE IMPLEMENTED.
--- NOTE | 2017-12-17 12:30 | NUR ---
MG RN NOTES PATIENT'S 1200 BLOOD GLUCOSE LEVEL IS 162 AND PATIENT REFUSED INSULIN FOR NOW. PATIENT STATES THAT HE IS GOING HOME AND WILL TAKE HIS MEDICATION AT HOME.
--- NOTE | 2017-12-17 15:00 | NUR ---
MG RN NOTES PATIENT HAS BEEN DISCHARGE HOME/ SELF CARE WITH HIS BROTHER AT 1500. PATIENT IS A/OX4, NO SOB, NO ACUTE DISTRESS NOTED THIS TIME. DISCHARGE EDUCATION PROVIDED TO PATIENT AND HIS BROTHER . ALL NEEDS ARE MET. PATIENT CARE PROVIDED, STROKE TEACHING PROVIDED. Addendum: 12/17/17 at 1503 by SAE LAN RN IV LINE AND WRIST BAND REMOVED.
== END 2017-12-17 15:00 | disposition home health service (06) | DRG 64 ==
LOC: ER 12:41 → TELE1 14:37 → MEDSG1 12-16 10:03
PROVIDERS: ADMIT Nurse Practitioner Acute Care; ATTEND Nurse Practitioner Acute Care
DX: I63.9 Cerebral infarction, unspecified (principal); N17.0 Acute kidney failure with tubular necrosis; J45.901 Unspecified asthma with (acute) exacerbation; Z68.41 Body mass index [BMI] 40.0-44.9, adult; Z85.47 Personal history of malignant neoplasm of testis; E78.5 Hyperlipidemia, unspecified; J44.9 Chronic obstructive pulmonary disease, unspecified; K74.60 Unspecified cirrhosis of liver; I10 Essential (primary) hypertension; E11.65 Type 2 diabetes mellitus with hyperglycemia; E66.01 Morbid (severe) obesity due to excess calories; N40.0 Benign prostatic hyperplasia without lower urinary tract symptoms; R20.0 Anesthesia of skin; G47.33 Obstructive sleep apnea (adult) (pediatric); R59.0 Localized enlarged lymph nodes; I66.22 Occlusion and stenosis of left posterior cerebral artery; K21.9 Gastro-esophageal reflux disease without esophagitis; Z87.891 Personal history of nicotine dependence
CPT/HCPCS: 36415; 70450-TC; 70496-TC; 70498-TC; 70551-TC; 71045-TC; 80048-TC; 80061-TC; 82962-TC; 84443-TC; 84484-TC; 85025-TC; 85652-TC; 85730-TC; 87081-TC; 92611-TC; 93307-TC; A4606; J1815; J2920; J7050; Q9967; Z7610

== ENCOUNTER 2020-08-01 19:30 | Inpatient (IN) | payer MEDICARE, OTHER ==
[~2020-08-01] VITALS: Ht 165.1 cm; Wt 117.9 kg
[~2020-08-01 19:30] MED LIST changes: -ACET-73 PO; +ALBU18HF2 IH; -ALBU18HF2 INH; -ALBU2.5V13 NEB; +ALBU2.5V38 IH; +CLOP75TA15 PO; +DULA0.75 SQ; -IBUP-1957 PO; -INSU100C10 SQ; +INSU100V27 SQ; +INSU100V7 SQ; -LEVO750T21 PO; -MECL-102 PO; +MECL-159 PO; +MINO10TA2 PO; +MOME13HF IH; -MOME13HF2 INH; -NPH,100V SQ; -PRED20TA PO; +SIMV-49 PO; -SIMV40TA5 PO; +THEO400T PO; -THEOPHYLLINE PO
--- NOTE | 2020-08-01 19:44 | NUR ---
PATIENT CAME TO THE ER BIBSELF TO BED 7 C/O SOB SINCE LAST YEAR. PATIENT STATES THAT HE LAST TOOK PREDNISONE 40MG BAOUT 30x MINUTES AGO ACID EXTRACTOR. PATIENT STATES THAT HE "DOES NOT HAVE ENOUGH" RESCUE INHALER. PATIENT IS AAOX4. BREATHING EVENLY AND UNLABORED ON ROOM AIR AT 93%. PLACED ON 2L OF N/C. CONNECTED TO THE MONITOR.
[2020-08-01] MEDS ORDERED: IPRATROPIUM NEB FS 0.5 MG/2.5 ML AMPUL.NEB ONE (20:10)
[2020-08-01] MEDS ORDERED: ALBUTEROL FS 2.5 MG/3 ML VIAL.NEB ONE (20:10)
[2020-08-01 20:27] LABS: BASOPHILS # (AUTO) 0.1 /CMM (0.0-0.2); BASOPHILS % (AUTO) 0.7 % (0.0-2.0); EOSINOPHILS % (AUTO) 2.4 % (0.0-6.0); HEMATOCRIT 44 % (39-51); HEMOGLOBIN 14.2 g/dL (13.5-17.5); LYMPHOCYTES # (AUTO) 1.8 /CMM (0.8-4.8); LYMPHOCYTES % (AUTO) 16.4 % (20.0-44.0); MEAN CORPUSCULAR HGB CONC 32 g/dl (31.0-36.0); MEAN CORPUSCULAR VOLUME 88 fL (80-96); MONOCYTES # (AUTO) 0.9 /CMM (0.1-1.30); MONOCYTES % (AUTO) 7.9 % (2.0-12.0); NEUTROPHILS # (AUTO) 8.1 /CMM (1.8-8.9); NEUTROPHILS % (AUTO) 72.6 % (43.0-81.0); PLATELET COUNT (AUTO) 224 /CMM (150-450); RED BLOOD CELL COUNT(AUTO) 5.01 MIL/uL (4.5-6.0); WHITE BLOOD COUNT (AUTO) 11.1 K/uL (4.3-11.0)
[2020-08-01] MEDS ORDERED: ALBUTEROL FS 2.5 MG/3 ML VIAL.NEB NEB ONE (20:30)
[2020-08-01] MEDS ORDERED: IPRATROPIUM NEB FS 0.5 MG/2.5 ML AMPUL.NEB NEB ONE (20:30)
[2020-08-01 21:02] LABS: BILIRUBIN,DIRECT 0.1 mg/dL (0.0-0.2); BILIRUBIN,TOTAL 0.4 mg/dL (0.2-1.0); CALCIUM, SERUM 8.2 mg/dL (8.5-10.1); CREATININE 1.4 mg/dL (0.6-1.3); POTASSIUM 3.7 mmol/L (3.5-5.1); TOTAL PROTEIN, SERUM 6.6 g/dL (6.4-8.2)
[2020-08-01] MEDS ORDERED: FUROSEMIDE 40 MG/4 ML VIAL ONE (21:16)
[2020-08-01] MEDS ORDERED: ASPIRIN 81 MG TAB.CHEW ONE (21:16)
[2020-08-01] MEDS ORDERED: FUROSEMIDE 40 MG/4 ML VIAL IV ONE (21:30)
[2020-08-01] MEDS ORDERED: ASPIRIN 81 MG TAB.CHEW PO ONE (21:30)
--- NOTE | 2020-08-01 21:41 | NUR ---
BED 106
--- NOTE | 2020-08-01 21:56 | NUR ---
REPORT CALLED TO PROJECT MANAGER INDUSTRIALPENNIE OBREGON. WILL TRANSPORT PT VIA ACLS PROTOCOL.
[2020-08-01] MEDS ORDERED: MECLIZINE HCL 25 MG TABLET PO PRN (22:00)
[2020-08-01] MEDS ORDERED: MONTELUKAST SODIUM (10MG) 10 MG TABLET PO SCH (22:00)
[2020-08-01] MEDS ORDERED: hydrALAZINE HCL 25 MG TABLET PO SCH (22:00)
[2020-08-01] MEDS ORDERED: SIMVASTATIN 40 MG TABLET PO SCH (22:00)
--- NOTE | 2020-08-01 22:03 | NUR ---
PT TRANSFERED PER ACLS PROTOCOL
--- NOTE | 2020-08-01 22:15 | NUR ---
RN OPENING NOTES RECEIVED PT FROM ER, A/O X 4 CROATIAN MONEGASQUE SPEAKING ABLE TO MAKE NEEDS KNOWN. PT IS ON 2L OF OXYGEN TOLERATING WELL. PT DENIES SOB NO S/S OF RESP DISTRESS NOTED, BREATHING IS EVEN AND LABORED. SATURATION IS 93% AT THIS TIME. PT HAS IV SITE, LFA #20 FLUSHED INTACT PATENT. PT IS AMBULATORY WITH STEADY GAIT. PT REFUSES TO GO THROUGH WALLET AND THOROUGH CHECK OF BAG, ALL PT BELONGINGS ACCOUNTED FOR ASIDE FROM PHONE, PT BELIEVES IT REMAINS IN ER BUT WAS TOLD IT IS WITH HIS . TRIED TO GET AHOLD OF , NO ANSWER. PT WILL FOLLOW UP IN THE MORNING. PT DENIES PAIN, IS AFEBRILE. PRVIDED SUPPLEMENTATION/NOURISHMENT, HYGIENE PRODUCTS. SAFETY MEASURES IN PLACE, HOB ELEVATED. SIDE RAILS UP X2 BED LOCKED IN LOWEST POSITION. CALL LIGHT WITHIN REACH. NEEDS ATTENDED WILL CONT TO MONITOR THROUGHOUT SHIFT. Addendum: 08/02/20 at 0715 by MINDI MAURER RN permits to go through bag, but not count contents of wallet
[2020-08-01] MEDS ORDERED: HYDROCODONE/APAP 5/325MG TABLET PO PRN (22:30)
[2020-08-01] MEDS ORDERED: DEXTROSE 50%-WATER 50 ML DISP.SYRIN IV PRN (22:30)
[2020-08-01] MEDS ORDERED: ACETAMINOPHEN 325 MG TABLET PO PRN (22:30)
[2020-08-01] MEDS ORDERED: INSULIN REGULAR, HUMAN 100 UNIT/ML 3 ML VIAL SQ PRN (22:30)
[2020-08-01] MEDS ORDERED: ZOLPIDEM TARTRATE 5 MG TABLET PO PRN (22:30)
[2020-08-01] MEDS ORDERED: ONDANSETRON HCL/PF 4 MG/2 ML VIAL IVP PRN (22:30)
[2020-08-01] MEDS ORDERED: SIMVASTATIN 20 MG TABLET ONE (23:12)
[2020-08-01] MEDS: TAMSULOSIN 0.4 MG CAP.SR.24H PO SCH (23:35)
[2020-08-01] MEDS: METOPROLOL TARTRATE 50 MG TABLET PO SCH ×2 (23:36→23:38)
--- NOTE | 2020-08-01 23:49 | NUR ---
pt refused metoprolol due to pt verbalizing he has an allergy to a certain blood pressure medication, but unsure of which one. therefore refused medication, non administered due to possible allergy, pt will follow up with in the morning to inquire about which bp medication he is allergic to, all other allergies accounted for and documented.
[2020-08-01] MEDS ORDERED: PIPERACILLIN /TAZOBACTAM 3.375 G VIAL IV ONE (23:57)
[2020-08-02] VITALS: BP 146/68
[2020-08-02 04:00] VITALS: BP 144/58
--- NOTE | 2020-08-02 05:47 | NUR ---
pt transferred to room 326-1 in stable condition. via acls protocol. all due medications given. all belongings at bedside. report given to Qiana CASPER for continuation of care. Addendum: 08/02/20 at 0604 by MINDI MAURER RN incorrect pt DISREGARD
--- NOTE | 2020-08-02 06:04 | NUR ---
pt is resting comfortably at this time. motivated to self care, hygiene products provided. pt denies pain, is not in any distress, denies sob at this time.
[2020-08-02 06:38] LABS: BASOPHILS % (AUTO) 0.3 % (0.0-2.0); EOSINOPHILS % (AUTO) 2.3 % (0.0-6.0); HEMATOCRIT 43 % (39-51); HEMOGLOBIN 14.2 g/dL (13.5-17.5); LYMPHOCYTES # (AUTO) 1.4 /CMM (0.8-4.8); LYMPHOCYTES % (AUTO) 15.3 % (20.0-44.0); MEAN CORPUSCULAR HGB CONC 33 g/dl (31.0-36.0); MEAN CORPUSCULAR VOLUME 88 fL (80-96); MONOCYTES # (AUTO) 0.7 /CMM (0.1-1.30); MONOCYTES % (AUTO) 7.5 % (2.0-12.0); NEUTROPHILS % (AUTO) 74.6 % (43.0-81.0); PLATELET COUNT (AUTO) 203 /CMM (150-450); WHITE BLOOD COUNT (AUTO) 9.4 K/uL (4.3-11.0)
[2020-08-02 06:49] LABS: ALBUMIN 2.8 g/dL (3.4-5.0); BILIRUBIN,TOTAL 0.5 mg/dL (0.2-1.0); CREATININE 1.2 mg/dL (0.6-1.3); POTASSIUM 3.7 mmol/L (3.5-5.1); TOTAL PROTEIN, SERUM 6.4 g/dL (6.4-8.2)
--- NOTE | 2020-08-02 06:55 | NUR ---
RN CLOSING NOTES NO CHANGE IN CONDITION, PT STILL REMAINS WITH 2L OF O2, NO DISTRESS NOTED. PT AFEBRILE. DENIES PAIN. NEEDS ATTENDED. SAFETY MEASURES IN PLACE. HOB ELEVATED. BED LOCKED IN LOWEST POSITION.BED ALARM ON. CALL LIGHT WITHIN REACH. WILL ENDORSE TO AM NURSE FOR CONTINUATION OF CARE.FOLLOWED UP WITH ER STAFF, NO SIGN OF THE PHONE. LAST SEEN WITH PT BEFORE TRANSFER. Addendum: 08/02/20 at 0716 by MINDI MAURER RN pt did not sign belonging list d/t no phone, searched entire room with pt no phone found, ER verbalized they will cont to search and endorse to day shift
--- NOTE | 2020-08-02 06:56 | NUR ---
NOTIFIED NURSING RN CHARGE REGARDING PT BLACK BRIANNE
[2020-08-02 07:00] LABS: THYROID STIMULATING HORMONE 1.367 uIU/mL (0.358-3.74)
[2020-08-02] MEDS ORDERED: ALBUTEROL FS 2.5 MG/3 ML VIAL.NEB NEB PRN (07:00)
[2020-08-02] MEDS ORDERED: DEXTROSE 50%-WATER 50 ML DISP.SYRIN IV PRN (07:00)
[2020-08-02] MEDS ORDERED: *INSULIN REGULAR(HUMULIN R)HUM 100 UNIT/ML VIAL SQ PRN (07:00)
[2020-08-02] MEDS ORDERED: BLOOD SUGAR DIAGNOSTIC 1 EACH STRIP IN SCH (07:30)
--- NOTE | 2020-08-02 07:59 | NUR ---
RECEIVED PATIENT IN BED. NO ACUTE DISTRESS NOTED. PATIENT ALERT & ORIENTED X4. PATIENT ON 2L NC, SATURATING >92%. PATIENT ON EDGING SUPERVISOR, NSR NOTED. PATIENT RFA INTACT, PATENT. PATIENT SAFETY MEASURES MAINTAINED. CALL LIGHT WITHIN REACH. WILL CONTINUE TO MONITOR.
[2020-08-02 08:00] VITALS: BP 140/73
[2020-08-02] MEDS ORDERED: INSULIN GLARGINE, 100 UNIT/ML CARTRIDGE SQ SCH ×2 (08:00→22:00)
[2020-08-02] MEDS: LORATADINE 10 MG TABLET PO SCH (08:12)
[2020-08-02] MEDS: BLOOD SUGAR DIAGNOSTIC 1 EACH STRIP VI SCH ×4 (08:12→22:30)
[2020-08-02] MEDS: PANTOPRAZOLE 40 MG TABLET.DR PO SCH (08:12)
[2020-08-02] MEDS: ASPIRIN EC 81 MG TABLET.DR PO SCH (08:12)
[2020-08-02] MEDS: CLOPIDOGREL BISULFATE 75 MG TABLET PO SCH (08:12)
[2020-08-02] MEDS: INSULIN REGULAR, HUMAN 100 UNIT/ML 3 ML VIAL SQ PRN ×4 (08:28→17:57)
[2020-08-02] MEDS: FLUTICASONE/VILANTEROL 1 EACH BLST.W.DEV IH SCH (08:29)
[2020-08-02] MEDS ORDERED: FUROSEMIDE 20 MG/2 ML VIAL IV SCH (09:00)
[2020-08-02] MEDS ORDERED: METOPROLOL TARTRATE 50 MG TABLET PO SCH ×2 (09:00)
[2020-08-02] MEDS ORDERED: MINOXIDIL (2.5MG) 2.5 MG TABLET PO SCH (09:00)
[2020-08-02] MEDS: VALSARTAN 80 MG TABLET PO SCH (09:18)
[2020-08-02] MEDS: FUROSEMIDE 40 MG/4 ML VIAL IV SCH ×3 (09:18→17:33)
[2020-08-02] MEDS: DILTIAZEM HCL CD 240 MG PO SCH ×2 (11:00→11:38)
[2020-08-02 12:00] VITALS: BP 148/77
[2020-08-02] MEDS ORDERED: DULA0.75 SQ (12:05)
[2020-08-02] MEDS ORDERED: SULF15DR6 OP (12:05)
[2020-08-02] MEDS ORDERED: MYRBETRIQ PO (12:05)
[2020-08-02] MEDS ORDERED: DOXA4TAB3 PO (12:05)
[2020-08-02] MEDS ORDERED: ROSU20TA32 PO (12:05)
[2020-08-02] MEDS ORDERED: FURO-144 PO (12:05)
[2020-08-02] MEDS ORDERED: CHOL200010 PO (12:05)
[2020-08-02] MEDS ORDERED: DUTA0.5C PO (12:05)
[2020-08-02] MEDS ORDERED: MOME15OI2 TP (12:05)
[2020-08-02] MEDS ORDERED: FLUT1BLS IH (12:05)
[2020-08-02] MEDS ORDERED: ONDA4TAB11 PO (12:05)
[2020-08-02] MEDS ORDERED: ICOS1CAP2 PO (12:05)
[2020-08-02] MEDS ORDERED: TOPI25TA49 PO (12:09)
[2020-08-02] MEDS ORDERED: METH-406 PO (12:09)
[2020-08-02] MEDS ORDERED: methylPREDNISolone SOD SUCC 40 MG/ML VIAL IV SCH (13:00)
[2020-08-02] MEDS: ALBUTEROL FS 2.5 MG/3 ML VIAL.NEB NEB SCH ×3 (15:51→23:08)
[2020-08-02] MEDS: IPRATROPIUM NEB FS 0.5 MG/2.5 ML AMPUL.NEB NEB SCH ×3 (15:52→23:08)
[2020-08-02 16:00] VITALS: BP 169/79
[2020-08-02] MEDS: INSULIN LISPRO/ASPART 100 UNIT/ML CARTRIDGE SQ SCH ×2 (17:46→22:30)
--- NOTE | 2020-08-02 17:58 | NUR ---
PATIENT REFUSING INSULIN PER SLIDING SCALE DESPITE BLOOD SUGAR OF 416 (REPEATED TEST). PATIENT INFORMED OF THE RISKS AND CONSEQUENCES. PATIENT IS UPSET, BEING NONCOMPLIANT AND WANTS TO SPEAK TO A DOCTOR BEENA HE HASN'T SPOKEN TO ONE ALL DAY, PER PATIENT Addendum: 08/02/20 at 1800 by XU SAN[address]A RN DR[address] YOUNGBLOOD NOTIFIED OF 416 BLOOD SUGAR AND REFUSING OF INSULIN PER SLIDING SCALE
--- NOTE | 2020-08-02 18:33 | NUR ---
PATIENT IN BED. NO ACUTE DISTRESS NOTED. PATIENT ALERT & ORIENTED X4. PATIENT ON 2L NC, SATURATING >92%. PATIENT ON HOME ENERGY INSPECTOR, NSR NOTED. PATIENT RFA INTACT, PATENT. PATIENT SAFETY MEASURES MAINTAINED. CALL LIGHT WITHIN REACH. WILL ENDORSE PLAN OF CARE TO ONCOMING SHIFT
[2020-08-02] MEDS ORDERED: ONDANSETRON 4 MG TAB.RAPDIS PO PRN (19:00)
[2020-08-02] MEDS ORDERED: ALBUTEROL FS 2.5 MG/0.5 ML VIAL.NEB IH PRN (19:30)
[2020-08-02] MEDS ORDERED: IPRATROPIUM NEB FS 0.5 MG/2.5 ML AMPUL.NEB NEB SCH (19:30)
--- NOTE | 2020-08-02 19:30 | NUR ---
RN NOTE RECEIVED PT IN BED ALERT AND ORIENTED X 4. ON O2 VIA NC AT 2LPM. NO DISTRESS NOTED. PT DENIES SOB OR PAIN. ON TELE MONITORING SHOWS SR WITH HR OF 87. IV ON RFA PATENT AND INTACT. ALL SAFETY MEASURES IMPLEMENTED PER PROTOCOL. CALL LIGHT WITHIN REACH. BED LOCKED IN LOWEST POSITION. SIDE RAILS UP X 2.
[2020-08-02] MEDS: methylPREDNISolone SOD SUCC 40 MG/ML VIAL IV SCH (19:55)
[2020-08-02 20:00] VITALS: BP 146/79
[2020-08-02] MEDS ORDERED: THEOPHYLLINE ANHYDROUS 200 MG TAB.SR.12H PO SCH (21:00)
[2020-08-02] MEDS: THEOPHYLLINE ANHYDROUS 100 MG TAB.SR.12H PO SCH (21:55)
[2020-08-02] MEDS ORDERED: SIMVASTATIN 20 MG TABLET PO SCH (22:00)
[2020-08-02] MEDS ORDERED: INSULIN GLARGINE, 100 UNIT/ML CARTRIDGE SQ ONE (22:00)
[2020-08-02] MEDS ORDERED: Medication Not On Formulary EA ([Myrbetriq] 25 MG) PO SCH (22:00)
[2020-08-02] MEDS: TAMSULOSIN 0.4 MG CAP.SR.24H PO SCH (22:21)
[2020-08-02] MEDS: MONTELUKAST SODIUM (10MG) 10 MG TABLET PO SCH (22:21)
[2020-08-02] MEDS: DUTASTERIDE (0.5 MG) 0.5 MG CAPSULE PO SCH (22:21)
[2020-08-02] MEDS: TOPIRAMATE 25 MG TABLET PO SCH (22:21)
[2020-08-02] MEDS: SIMVASTATIN 10 MG TABLET PO SCH (22:21)
--- NOTE | 2020-08-02 22:30 | NUR ---
RN NOTE PT FSBS 394. ALERT AND ORIENTED X 4. HUMALOG NOT IN STOCK. PT REFUSED TO HAVE THE REGULAR INSULIN, EXPLAINED RISKS AND BENEFITS. PT VERBALIZES UNDERSTANDING BUT STILL REFUSED. ALSO PT NON COMPLIANT TO DIET, WANTS TO DRINK 2 BOTTLE OF JUICE. EDUCATED ABOUT DIABETES AND DIET. PER PT HE IS AWARE OF IT. LANTUS 50UNITS GIVEN ORDERED. WILL CONTINUE TO MONITOR.
[2020-08-02] MEDS ORDERED: INSULIN LISPRO/ASPART 100 UNIT/ML CARTRIDGE SQ ONE (22:44)
[2020-08-03] VITALS (7 sets, daily range): BP systolic 93–150; BP diastolic 45–86
--- NOTE | 2020-08-03 00:18 | NUR ---
RN NOTE PT REFUSED SOLU-MEDROL. EXPLAINED RISKS AND BENEFITS. VERBALIZED UNDERSTANDING. NO RESP DISTRESS NOTED. WILL CONTINUE TO MONITOR.
[2020-08-03] MEDS: ALBUTEROL FS 2.5 MG/3 ML VIAL.NEB NEB SCH ×6 (04:46→23:30)
[2020-08-03] MEDS: IPRATROPIUM NEB FS 0.5 MG/2.5 ML AMPUL.NEB NEB SCH ×6 (04:46→23:30)
[2020-08-03 06:23] LABS: BASOPHILS % (AUTO) 0.2 % (0.0-2.0); HEMATOCRIT 44 % (39-51); HEMOGLOBIN 14.3 g/dL (13.5-17.5); LYMPHOCYTES # (AUTO) 0.7 /CMM (0.8-4.8); LYMPHOCYTES % (AUTO) 5.6 % (20.0-44.0); MEAN CORPUSCULAR HGB CONC 32 g/dl (31.0-36.0); MEAN CORPUSCULAR VOLUME 88 fL (80-96); MONOCYTES # (AUTO) 0.2 /CMM (0.1-1.30); MONOCYTES % (AUTO) 1.5 % (2.0-12.0); NEUTROPHILS % (AUTO) 92.7 % (43.0-81.0); PLATELET COUNT (AUTO) 232 /CMM (150-450); RED BLOOD CELL COUNT(AUTO) 5.01 MIL/uL (4.5-6.0)
[2020-08-03 06:51] LABS: CREATININE 1.6 mg/dL (0.6-1.3); MAGNESIUM 2.1 mg/dL (1.8-2.4); PHOSPHORUS 4.1 mg/dL (2.5-4.9); POTASSIUM 4.4 mmol/L (3.5-5.1)
[2020-08-03] MEDS: methylPREDNISolone SOD SUCC 40 MG/ML VIAL IV SCH ×4 (07:00→17:45)
[2020-08-03] MEDS: INSULIN LISPRO/ASPART 100 UNIT/ML CARTRIDGE SQ SCH ×5 (07:21→22:40)
[2020-08-03] MEDS: PANTOPRAZOLE 40 MG TABLET.DR PO SCH ×3 (07:30→08:39)
--- NOTE | 2020-08-03 07:30 | NUR ---
RN NOTES PT FSBS AT 492. HUMALOG 30 UNITS GIVEN ORDERED. ENDORSED TO NEXT SHIFT NURSE ALSO ENDORSED WITH BLOOD GLUCOSE OF 496. PT ALSO REFUSED TO HAVE PREDNISONE. WANTS IT LATER IN THE DAY. EXPLAINED THAT ITS EVERY 6HOURS AND ITS SCHEDULED AT THIS TIME. PT STILL REFUSES IT. NO RESP DISTRESS NOTED. PT TOLERATING ROOM AIR WITH O2 SAT OF 95 %.
--- NOTE | 2020-08-03 07:47 | NUR ---
RN NOTE DR. YOUNGBLOOD NOTIFIED OF BLOOD GLUCOSE OF 496.
[2020-08-03] MEDS: BLOOD SUGAR DIAGNOSTIC 1 EACH STRIP VI SCH ×5 (07:48→23:20)
--- NOTE | 2020-08-03 07:50 | NUR ---
RN OPENING NOTE PATIENT IS CURRENTLY IN BED WITH HOB AT SEMI FOWLERS POSITION. PATIENT IS AOX4. PATIENT IS ON ROOM AIR WITH NO SIGNS OF LABORED BREATHING. SKIN IS INTACT. RFA #20 IS PATENT, INTACT, AND HAS NO SIGNS OF INFILTRATION. BED IS LOCKED IN THE LOWEST POSITION, 3 GUARD RAILS RAISED, CALL WALSH WITHIN REACH, AND ALL HOSPITAL SAFETY PRECAUTIONS ARE BEING FOLLOWED. WILL CONTINUE TO MONITOR THROUGHOUT SHIFT.
[2020-08-03] MEDS: METHOCARBAMOL (750MG) 750 MG TABLET PO SCH ×3 (08:22→16:45)
[2020-08-03] MEDS: VALSARTAN 80 MG TABLET PO SCH (08:24)
[2020-08-03] MEDS: DOXAZOSIN MESYLATE (4 MG) 4 MG TABLET PO SCH ×2 (08:25→16:45)
[2020-08-03] MEDS: DILTIAZEM HCL CD 240 MG PO SCH (08:25)
[2020-08-03] MEDS: ASPIRIN EC 81 MG TABLET.DR PO SCH (08:26)
[2020-08-03] MEDS: LORATADINE 10 MG TABLET PO SCH (08:26)
[2020-08-03] MEDS: FLUTICASONE PROPIONATE 16 GM BOTTLE NS SCH ×2 (08:27→16:56)
[2020-08-03] MEDS: CHOLECALCIFEROL 1,000 UNIT TABLET (VIT D3) PO SCH (08:27)
[2020-08-03] MEDS: SPIRONOLACTONE 25 MG TABLET PO SCH ×3 (08:27→08:40)
[2020-08-03] MEDS: CLOPIDOGREL BISULFATE 75 MG TABLET PO SCH (08:27)
[2020-08-03] MEDS: FLUTICASONE/VILANTEROL 1 EACH BLST.W.DEV IH SCH (08:28)
[2020-08-03] MEDS: THEOPHYLLINE ANHYDROUS 100 MG TAB.SR.12H PO SCH ×2 (08:29→21:10)
[2020-08-03] MEDS ORDERED: SULFACETAMIDE 10% OPHTH 15 ML BOTTLE OP SCH (09:00)
[2020-08-03] MEDS ORDERED: ICOSAPENT ETHYL 1 GM PO SCH (09:00)
[2020-08-03] MEDS ORDERED: MOMETASONE FUROATE 0.1% CREAM 15 GM TUBE TP SCH (09:00)
[2020-08-03] MEDS ORDERED: FLUTICASONE/VILANTEROL 1 EACH BLST.W.DEV IH SCH (09:00)
[2020-08-03] MEDS ORDERED: INSULIN GLARGINE, 100 UNIT/ML CARTRIDGE SQ SCH ×2 (09:00→22:00)
[2020-08-03] MEDS ORDERED: TIOTROPIUM BROMIDE 6 CAP/BOX CAP.W.DEV IH SCH (09:00)
[2020-08-03] MEDS ORDERED: BENAZEPRIL HCL 20 MG TABLET PO SCH (09:00)
--- NOTE | 2020-08-03 09:24 | NUR ---
PT REFUSED X-RAY 2ND TIME, INFORMED DR. ROBERSON
[2020-08-03] MEDS: INSULIN GLARGINE, 100 UNIT/ML CARTRIDGE SQ SCH ×2 (09:48→10:00)
[2020-08-03] MEDS: hydrALAZINE HCL 50 MG TABLET PO SCH ×3 (09:53→16:45)
[2020-08-03] MEDS: NITROGLYCERIN 30 GM TUBE TP SCH ×2 (10:10→21:07)
--- NOTE | 2020-08-03 11:56 | NUR ---
RN NOTE PATIENT REFUSED PREDNISONE. EDUCATED PATIENT ON IMPORTANCE AND POTENTIAL SIDE EFFECTS OF REFUSING MEDICATION. PATIENT STILL REFUSED.
--- NOTE | 2020-08-03 13:15 | NUR ---
RN NOTE SPOKE WITH PATIENT ABOUT MYRBETRIC HOME MED. PATIENT STATED HE DOES NOT TAKE THIS AT HOME. WILL NOTIFY PHARMACY.
--- NOTE | 2020-08-03 18:33 | NUR ---
RN NOTE PATIENT'S DINNER DOSE OF HUMALOG 30 UNITS HELD DUE TO PATIENT NOT EATING AND BLOOD GLUCOSE OF 98. DR. YOUNGBLOOD NOTIFIED AND GAVE OKAY TO HOLD. WILL ENDORSE TO FOUNDER CHAIRMAN AND CHIEF CREATIVE OFFICER RN.
--- NOTE | 2020-08-03 18:42 | NUR ---
RN CLOSING NOTE PATIENT IS CURRENTLY IN BED WITH HOB AT SEMI FOWLERS POSITION. PATIENT IS AOX4. PATIENT IS ON ROOM AIR WITH NO SIGNS OF LABORED BREATHING. SKIN IS INTACT. RFA #20 IS PATENT AND INTACT. BED IS LOCKED IN THE LOWEST POSITION, 3 GUARD RAILS RAISED, CALL WALSH WITHIN REACH, AND ALL HOSPITAL SAFETY PRECAUTIONS ARE BEING FOLLOWED. ALL DUE MEDS GIVEN OTHER THAN THOSE PATIENT REFUSED. PATIENT EDUCATED ON IMPORTANCE OF EATING PRIOR TO INSULIN ADMINISTRATION WELL. WILL ENDORSE TO BILINGUAL OFFICE ASSISTANT RN.
--- NOTE | 2020-08-03 20:00 | NUR ---
RN NOTE RECEIVED PT IN BED AWAKE ALERT AND ORIENTED X 4.AMBULATORY, ON O2 VIA NC AT 3LPM.SATING 94% NO DISTRESS NOTED. PT DENIES SOB OR PAIN. ON TELE MONITORING SHOWS SR WITH HR OF67. IV ON RFA PATENT AND INTACT. ALL SAFETY MEASURES IMPLEMENTED PER PROTOCOL. CALL LIGHT WITHIN REACH. BED LOCKED IN LOWEST POSITION. SIDE RAILS UP X 2. DUE MEDS GIVEN ORDERED, V/S STABLE AFEBRILE ,ALL NEEDS ATTENDED TOO ,WILL CONTINUE TO MONITOR PTS.
[2020-08-03] MEDS: SIMVASTATIN 10 MG TABLET PO SCH (21:08)
[2020-08-03] MEDS: MONTELUKAST SODIUM (10MG) 10 MG TABLET PO SCH (21:08)
[2020-08-03] MEDS: TAMSULOSIN 0.4 MG CAP.SR.24H PO SCH (21:09)
[2020-08-03] MEDS: TOPIRAMATE 25 MG TABLET PO SCH (21:09)
[2020-08-03] MEDS: DUTASTERIDE (0.5 MG) 0.5 MG CAPSULE PO SCH (21:09)
[2020-08-03] MEDS ORDERED: Myrbetriq 25 MG PO SCH (22:00)
--- NOTE | 2020-08-03 22:00 | NUR ---
BILLET INSPECTOR NOTES BLOOD SUGAR AT 10PM IS 176 30 UNITS OF HUMALOG GIVEN , WILL CONTINUE TO MONITOR PTS. ORDERED , REGULAR INSULIN WAS NOT GIVEN D/T PTS REFUSAL
[2020-08-04] VITALS: BP 106/46
--- NOTE | 2020-08-04 | NUR ---
telephone sterilizer notes solumedrol dose for 12mn not given d/t pts refusal.
[2020-08-04] MEDS: methylPREDNISolone SOD SUCC 40 MG/ML VIAL IV SCH ×7 (01:02→23:37)
[2020-08-04] MEDS: ALBUTEROL FS 2.5 MG/3 ML VIAL.NEB NEB SCH ×7 (03:30→23:30)
[2020-08-04] MEDS: IPRATROPIUM NEB FS 0.5 MG/2.5 ML AMPUL.NEB NEB SCH ×7 (03:30→23:30)
[2020-08-04 04:00] VITALS: BP 122/57
--- NOTE | 2020-08-04 05:33 | NUR ---
television engineer notes Blood sugar check prior to steroids dose per pts request, steroids dose at 6am was not given d/t pts refusal ,explain risk and benefits, will endorse to rn day shift for continuity of care and to check blood sugar at 730am. will continue to monitor pts.
[2020-08-04 06:25] LABS: HEMATOCRIT 42 % (39-51); HEMOGLOBIN 13.6 g/dL (13.5-17.5); LYMPHOCYTES # (AUTO) 0.5 /CMM (0.8-4.8); LYMPHOCYTES % (AUTO) 3.3 % (20.0-44.0); MEAN CORPUSCULAR HGB CONC 33 g/dl (31.0-36.0); MEAN CORPUSCULAR VOLUME 89 fL (80-96); MONOCYTES # (AUTO) 0.3 /CMM (0.1-1.30); MONOCYTES % (AUTO) 1.8 % (2.0-12.0); NEUTROPHILS # (AUTO) 14.2 /CMM (1.8-8.9); NEUTROPHILS % (AUTO) 94.9 % (43.0-81.0); PLATELET COUNT (AUTO) 226 /CMM (150-450); RED BLOOD CELL COUNT(AUTO) 4.72 MIL/uL (4.5-6.0)
[2020-08-04 07:28] LABS: CALCIUM, SERUM 8.9 mg/dL (8.5-10.1); CREATININE 2.5 mg/dL (0.6-1.3); MAGNESIUM 2.5 mg/dL (1.8-2.4); PHOSPHORUS 6.1 mg/dL (2.5-4.9); POTASSIUM 5.3 mmol/L (3.5-5.1)
--- NOTE | 2020-08-04 07:30 | NUR ---
RN OPENING NOTE PATIENT IS IN BED WITH HOB AT SEMI FOWLERS POSITION. PATIENT IS CURRENTLY ON ROOM AIR WITH NO SIGNS OF LABORED BREATHING. PATIENT IS AOX4. SKIN IS INTACT. RFA #20 IS PATENT AND INTACT. BED IS LOCKED IN THE LOWEST POSITION, 3 GUARD RAILS RAISED, CALL WALSH WITHIN REACH, AND ALL HOSPITAL SAFETY PRECAUTIONS ARE BEING FOLLOWED. WILL CONTINUE TO MONITOR THROUGHOUT SHIFT.
[2020-08-04 08:00] VITALS: BP 124/58
[2020-08-04] MEDS: BLOOD SUGAR DIAGNOSTIC 1 EACH STRIP VI SCH (08:10)
[2020-08-04] MEDS: METHOCARBAMOL (750MG) 750 MG TABLET PO SCH ×3 (08:10→16:46)
[2020-08-04] MEDS: LORATADINE 10 MG TABLET PO SCH (08:11)
[2020-08-04] MEDS: SPIRONOLACTONE 25 MG TABLET PO SCH (08:11)
[2020-08-04] MEDS: ASPIRIN EC 81 MG TABLET.DR PO SCH (08:11)
[2020-08-04] MEDS: CHOLECALCIFEROL 1,000 UNIT TABLET (VIT D3) PO SCH (08:11)
[2020-08-04] MEDS: DOXAZOSIN MESYLATE (4 MG) 4 MG TABLET PO SCH ×2 (08:12→16:41)
[2020-08-04] MEDS: CLOPIDOGREL BISULFATE 75 MG TABLET PO SCH (08:12)
[2020-08-04] MEDS: THEOPHYLLINE ANHYDROUS 100 MG TAB.SR.12H PO SCH ×2 (08:13→21:21)
[2020-08-04] MEDS: NITROGLYCERIN 30 GM TUBE TP SCH ×2 (08:14→21:21)
[2020-08-04] MEDS: INSULIN LISPRO/ASPART 100 UNIT/ML CARTRIDGE SQ SCH ×4 (08:15→21:51)
[2020-08-04] MEDS: INSULIN GLARGINE, 100 UNIT/ML CARTRIDGE SQ SCH (08:17)
[2020-08-04] MEDS: FLUTICASONE/VILANTEROL 1 EACH BLST.W.DEV IH SCH (08:35)
[2020-08-04] MEDS: hydrALAZINE HCL 50 MG TABLET PO SCH ×3 (08:35→16:40)
[2020-08-04] MEDS: FLUTICASONE PROPIONATE 16 GM BOTTLE NS SCH ×2 (08:35→16:57)
[2020-08-04] MEDS: DILTIAZEM HCL CD 240 MG PO SCH (08:36)
[2020-08-04] MEDS ORDERED: INSULIN REGULAR, HUMAN 100 UNIT/ML 3 ML VIAL SQ PRN (09:00)
[2020-08-04] MEDS ORDERED: DEXTROSE 50%-WATER 50 ML DISP.SYRIN IV PRN ×2 (09:00→13:00)
[2020-08-04] MEDS ORDERED: *INSULIN REGULAR(HUMULIN R)HUM 100 UNIT/ML VIAL SQ PRN (09:00)
--- NOTE | 2020-08-04 09:00 | NUR ---
RN NOTE. DR. YOUNGBLOOD NOTIFIED OF GLUCOSE 523. ADMINISTERED 30 UNITS HUMALOG AND [address] YOUNGBLOOD ADVISED TO SWITCH HUMALOG TO 40 UNITS FOR NEXT DOSE. WILL PLACE ORDER.
--- NOTE | 2020-08-04 09:00 | NUR ---
RN NOTE PATIENT REFUSED HYDRALAZINE AND CARDIZEM WITH MORNING BP OF 124/58. EDUCATED PATIENT ON SIDE EFFECTS OF REBOUND HYPERTENSION. PATIENT STILL REFUSED. DR. YOUNGBLOOD NOTIFIED.
[2020-08-04 12:00] VITALS: BP 113/53
--- NOTE | 2020-08-04 12:30 | NUR ---
RN NOTE PATIENT'S BLOOD SUGAR IS >[address] YOUNGBLOOD NOTIFIED. PATIENT REFUSED HUMULIN EVEN AFTER EDUCATION. ADVISED TO GIVE 12 UNITS OF HUMALOG ON TOP OF THE 40 UNITS DUE. WILL PROCEED TO DO SO.
[2020-08-04] MEDS: BLOOD SUGAR DIAGNOSTIC 1 EACH STRIP IN SCH ×6 (12:46→21:50)
[2020-08-04] MEDS ORDERED: INSULIN LISPRO/ASPART 100 UNIT/ML CARTRIDGE SQ PRN (13:00)
[2020-08-04] MEDS: INSULIN LISPRO/ASPART 100 UNIT/ML CARTRIDGE SQ PRN ×2 (13:02→21:53)
--- NOTE | 2020-08-04 13:20 | NUR ---
RN NOTE GAVE REPORT TO PENNIE NAVA FOR ZAC. PATIENT IS STABLE.
--- NOTE | 2020-08-04 13:30 | NUR ---
Patient noticed BS 718mg/dl, MD made aware and continue to monitor and administer insulin indicated from sliding scale. Will continue to observed patient BS and diet compliance.
--- NOTE | 2020-08-04 13:30 | NUR ---
Patient noticed eating from out side of foods, BS 718mg/dl this after noon, MD made aware and continuous administer insulin from sliding scale. Also provide education for diet & actively resume and patient verbally understanding.
--- NOTE | 2020-08-04 15:34 | NUR ---
PT REFUSED RESP TX ATT. NO S/S OF SOB NOTED Addendum: 08/04/20 at 1534 by LINA HIGHTOWER RT Amended: Links added.
[2020-08-04 16:00] VITALS: BP 112/46
--- NOTE | 2020-08-04 17:09 | NUR ---
PATIENT REFUSED SOLU MEDROL X 3 STATED "STEROID MAKES BLOOD SUGAR HIGH."
--- NOTE | 2020-08-04 18:28 | NUR ---
RN Closing note Patient in bed resting, remains aleart and oriented x 4. Respiratory even and unlabored on room air O2sat 2%. Skin is warm to touch, keep clean/dry, intact IV site on right FA 20g with SL. Kept elevated HOB for ensure airway and aspiration precaution, also lowest bed position for safety. BS still high 431 from 718 mg/dl and given 40 units of insulin as scheduled, patient refused solumedrol at 1800 due. Call light within reach, will endorse shift stacker.
--- NOTE | 2020-08-04 19:30 | NUR ---
RN OPENING NOTES: RECEIVED PT A/OX4 IN BED RESTING COMFORTABLY. PATIENT IN NO S/SX OF ACUTE DISTRESS AT THIS TIME. NO SOB NOTED. PATIENT'S BREATHING IS EVEN AND UNLABORED. PATIENT IS ON ROOM AIR ;TOLERATING WELL WITH O2 SAT OF 93 AT THE TIME OF RECEIVED. PATIENT ON TELE MONITORING READING SINUS RHYTHM HR IS @80 AT THE TIME OF RECEIVED. PATIENT ON CARDIAC DIET;TOLERATES WELL. NOTED IV SITE ON R FA #20; PATENT, INTACT AND FLUSHING WELL; NO S/S OF INFECTION OR INFILTRATION. SAFETY MEASURES HAVE BEEN PROVIDED AND IMPLEMENTED. PATIENT BED ALARM IS ON. HEAD OF BED ELEVATED. BED IS LOCKED, IN LOWEST POSITION AND SIDE RAILS UP. CALL LIGHT WITHIN REACH OF THE PATIENT. APPLICABLE ISOLATION PRECAUTIONS IN PLACE. WILL CONTINUE TO MONITOR AND REASSESS FOR ANY CHANGES AND WILL CARRY OUT ANY ONGOING AND ACTIVE MD ORDER.
[2020-08-04 20:00] VITALS: BP 100/51
--- NOTE | 2020-08-04 20:05 | NUR ---
RN NOTES RT COORDINATED WITH PRIMARY RN THAT PT REFUSED BREATHING TX. RN ACKNOWLEDGED. SENIOR FINANCIAL REPORTING ACCOUNTANT MADE AWARE. WILL CONTINUE TO MONITOR AND ASSESS THROUGHOUT THE SHIFT.
[2020-08-04] MEDS: DUTASTERIDE (0.5 MG) 0.5 MG CAPSULE PO SCH (21:22)
[2020-08-04] MEDS: TOPIRAMATE 25 MG TABLET PO SCH (21:23)
[2020-08-04] MEDS: SIMVASTATIN 10 MG TABLET PO SCH (21:23)
[2020-08-04] MEDS: TAMSULOSIN 0.4 MG CAP.SR.24H PO SCH (21:23)
[2020-08-04] MEDS: MONTELUKAST SODIUM (10MG) 10 MG TABLET PO SCH (21:23)
--- NOTE | 2020-08-04 23:00 | NUR ---
RN NOTES NO CHANGE IN PATIENT CONDITION AT THIS TIME PATIENT VITALS STABLE, NO SIGNS OF ACUTE RESPIRATORY DISTRESS. AUTOMATION/CONTROLS MANAGER MADE AWARE. WILL CONTINUE TO MONITOR AND REASSESS FOR ANY CHANGES THROUGHOUT THE SHIFT.
--- NOTE | 2020-08-04 23:38 | NUR ---
RN NOTES ACCU CHECK DONE; PT REQUESTED TO HAVE ACCU CHECK FIRST PRIOR TO GETTING SOLU MEDROL; ACCU CHECK RESULT 126MG/DL. FILAMENT COIL WINDER MADE AWARE
[2020-08-05] VITALS: BP 96/52
--- NOTE | 2020-08-05 00:19 | NUR ---
PT IS REFUSING RESP HHN TXS. NO RESP DISTRESS/SOB NOTED AT THIS TIME.
[2020-08-05] MEDS: ALBUTEROL FS 2.5 MG/3 ML VIAL.NEB NEB SCH ×6 (03:30→23:22)
[2020-08-05] MEDS: IPRATROPIUM NEB FS 0.5 MG/2.5 ML AMPUL.NEB NEB SCH ×6 (03:30→23:22)
[2020-08-05 04:00] VITALS: BP 98/54
--- NOTE | 2020-08-05 04:00 | NUR ---
RN NOTES PATIENT REMAINS IN NO ACUTE RESPIRATORY DISTRESS AT THIS TIME, NO CHANGES TO CONDITION/STATUS. BLADE BALANCER WELL AWARE. WILL CONTINUE TO MONITOR AND REASSESS FOR ANY CHANGES THROUGHOUT THE SHIFT
[2020-08-05] MEDS: methylPREDNISolone SOD SUCC 40 MG/ML VIAL IV SCH (05:03)
--- NOTE | 2020-08-05 05:03 | NUR ---
RN NOTES PATIENT REFUSED SOLU-MEDROL 60MG/1.5ML. EXPLAINED RISK AND BENEFITS BUT PATIENT STILL REFUSED. SENIOR INTERNAL AUDITOR MADE AWARE. WILL CONTINUE TO MONITOR AND ASSESS UNTIL END OF THE SHIFT.
[2020-08-05 06:33] LABS: HEMATOCRIT 42 % (39-51); HEMOGLOBIN 13.4 g/dL (13.5-17.5); LYMPHOCYTES # (AUTO) 0.4 /CMM (0.8-4.8); LYMPHOCYTES % (AUTO) 3.5 % (20.0-44.0); MEAN CORPUSCULAR HGB CONC 32 g/dl (31.0-36.0); MEAN CORPUSCULAR VOLUME 89 fL (80-96); MONOCYTES # (AUTO) 0.2 /CMM (0.1-1.30); MONOCYTES % (AUTO) 1.6 % (2.0-12.0); NEUTROPHILS # (AUTO) 12.1 /CMM (1.8-8.9); NEUTROPHILS % (AUTO) 94.9 % (43.0-81.0); PLATELET COUNT (AUTO) 217 /CMM (150-450); RED BLOOD CELL COUNT(AUTO) 4.71 MIL/uL (4.5-6.0); WHITE BLOOD COUNT (AUTO) 12.7 K/uL (4.3-11.0)
--- NOTE | 2020-08-05 06:52 | NUR ---
RN CLOSING NOTE: PATIENT REMAINS IN ROOM IN NO SIGNS OF RESPIRATORY DISTRESS, PATIENT STILL ON ROOM AIR ;TOLERATING WELL SATURATING @ >95% SP02. SAFETY MEASURES IMPLEMENTED, BED IN LOWEST POSITION, LOCKED, SIDE RAILS UP, CALL LIGHT WITHIN REACH. ALL NEEDS AND ORDERS ADDRESSED DURING THE SHIFT. IV ACCESS MAINTAINED INTACT, SECURED AND FLUSHING WELL. ALL DUE MEDS GIVEN ORDERED & SCHEDULED ; PATIENT TOLERATED WELL. PATIENT KEPT CLEAN AND COMFORTABLE WITHIN THE SHIFT. PATIENT ENDORSED TO INCOMING SHIFT RN WITH STABLE VITAL SIGN AND FOR CONTINUITY OF CARE.
[2020-08-05 07:31] LABS: CALCIUM, SERUM 9.3 mg/dL (8.5-10.1); CREATININE 2.6 mg/dL (0.6-1.3); MAGNESIUM 2.5 mg/dL (1.8-2.4); POTASSIUM 4.2 mmol/L (3.5-5.1)
[2020-08-05] MEDS: BLOOD SUGAR DIAGNOSTIC 1 EACH STRIP IN SCH ×8 (07:45→22:11)
[2020-08-05] MEDS: PANTOPRAZOLE 40 MG TABLET.DR PO SCH (07:48)
[2020-08-05] MEDS: INSULIN LISPRO/ASPART 100 UNIT/ML CARTRIDGE SQ SCH ×4 (07:49→22:04)
[2020-08-05 08:00] VITALS: BP 98/53
[2020-08-05] MEDS ORDERED: Dulaglutide (Trulicity) 0.75 MG SQ SCH (08:30)
[2020-08-05] MEDS: DOXAZOSIN MESYLATE (4 MG) 4 MG TABLET PO SCH ×2 (09:00→18:33)
[2020-08-05] MEDS: hydrALAZINE HCL 50 MG TABLET PO SCH ×4 (09:00→18:40)
[2020-08-05] MEDS: DILTIAZEM HCL CD 240 MG PO SCH (09:00)
[2020-08-05] MEDS: NITROGLYCERIN 30 GM TUBE TP SCH ×2 (09:33→20:39)
[2020-08-05] MEDS: THEOPHYLLINE ANHYDROUS 100 MG TAB.SR.12H PO SCH ×2 (09:33→20:37)
[2020-08-05] MEDS: ASPIRIN EC 81 MG TABLET.DR PO SCH (09:33)
[2020-08-05] MEDS: CHOLECALCIFEROL 1,000 UNIT TABLET (VIT D3) PO SCH (09:34)
[2020-08-05] MEDS: METHOCARBAMOL (750MG) 750 MG TABLET PO SCH ×3 (09:35→18:30)
[2020-08-05] MEDS: LORATADINE 10 MG TABLET PO SCH (09:35)
[2020-08-05] MEDS: predniSONE 20 MG TABLET PO SCH (09:35)
[2020-08-05] MEDS: FLUTICASONE PROPIONATE 16 GM BOTTLE NS SCH ×2 (09:36→18:31)
[2020-08-05] MEDS: FLUTICASONE/VILANTEROL 1 EACH BLST.W.DEV IH SCH (09:36)
[2020-08-05] MEDS: INSULIN GLARGINE, 100 UNIT/ML CARTRIDGE SQ SCH (09:40)
[2020-08-05] MEDS: CLOPIDOGREL BISULFATE 75 MG TABLET PO SCH (09:41)
[2020-08-05] MEDS: INSULIN LISPRO/ASPART 100 UNIT/ML CARTRIDGE SQ PRN ×5 (10:22→21:59)
[2020-08-05 16:00] VITALS: BP 109/68
[2020-08-05 20:00] VITALS: BP 143/78
--- NOTE | 2020-08-05 20:00 | NUR ---
RN NOTE RECEIVED PT IN BED A/A/O X4, PT ON 2 L VIA NC SATING 94%, PT HAS UNLABORED BREATHING . SAFETY MEASURES IN PLACE.
--- NOTE | 2020-08-05 20:30 | NUR ---
HEARD MADIE FROM PATIENT' ROOM AT 192 RUSHED INTO THE ROOM AND FOUND PATIENT ON THE FLOOR, DENIES ANY PAIN, ABLE TO MOVE EXTREMITIES WITHOUT PAIN, NO CHANGE IN LOC, PT IS ABLE TO IDENTIFY HIMSELF, ORIENRED TO NAME, DATE OF AND PLACE. ASSISSTED PATIENT BACK TO BED WITH TWO NURSES . ASSESSED PT AND FOUND SKIN TEAR ON RIGHT ARM 1 X 0.5 CM. PT STATED HE DID NOT HIT HIS HEAD. PATIENT STATED HE WANTED TO USE RESTROOM, REMINDED PT TO USE CALL LIGHT FOR ANY ASSISTANCE. NURSING WEB DESIGN INSTRUCTOR AND DR RODRIGUEZ MADE AWARE. RECEIVED RIGHT ARM X RAY. NO FRACTURE IDENTIFIED IN X RAY. INFORMED JENNIFER BARNES REGARDING X RAY. DAUGHTER VERONIKA INFORMED, SHE ALSO ADVISED PATIENT TO USE CALL LIGHT FOR ASSISTANCE. Addendum: 08/06/20 at 0222 by NANCY WHALEN RN WRONG DOCUMENTATION. THIS DOCUMENTATION DOES NOT BELONG TO THIS PATIENT.
[2020-08-05] MEDS: SIMVASTATIN 10 MG TABLET PO SCH (21:16)
[2020-08-05] MEDS: TAMSULOSIN 0.4 MG CAP.SR.24H PO SCH (21:16)
[2020-08-05] MEDS: DUTASTERIDE (0.5 MG) 0.5 MG CAPSULE PO SCH (21:16)
[2020-08-05] MEDS: MONTELUKAST SODIUM (10MG) 10 MG TABLET PO SCH (21:16)
[2020-08-05] MEDS: TOPIRAMATE 25 MG TABLET PO SCH (21:19)
--- NOTE | 2020-08-05 22:15 | NUR ---
BS AT 2200 IS 435, INFORMED DR RODRIGUEZ , ADMINISTERED HUMOLOG [address] RODRIGUEZ RECHECK IT IN 1 HOUR
--- NOTE | 2020-08-05 23:20 | NUR ---
RECECKED BS IS 377, INFORMED DR RODRIGUEZ RECEIVED 10U HUMALOG ONCE SQ. RECEIVED ORDER FROM DR RODRIGUEZ TO INCREASE 40U HUMALOG TO 50 U.
[2020-08-05] MEDS ORDERED: INSULIN LISPRO/ASPART 100 UNIT/ML CARTRIDGE SQ ONE (23:30)
[2020-08-06] MEDS: ALBUTEROL FS 2.5 MG/3 ML VIAL.NEB NEB SCH ×6 (03:30→23:30)
[2020-08-06] MEDS: IPRATROPIUM NEB FS 0.5 MG/2.5 ML AMPUL.NEB NEB SCH ×6 (03:30→23:30)
--- NOTE | 2020-08-06 04:00 | NUR ---
pt refused 0400 o'clock vital signs.
--- NOTE | 2020-08-06 05:00 | NUR ---
PT REFUSED CXR.
--- NOTE | 2020-08-06 06:21 | NUR ---
PT REFUSED CHEST XRAY
--- NOTE | 2020-08-06 07:10 | NUR ---
RN OPENING NOTES RECEIVED PT IN BED, A/O X4. NO S/SX OF ACUTE DISTRESS AT THIS TIME. NO SOB NOTED. ON ROOM AIR, TOLERATING WELL WITH O2 SAT OF 92%. ON CARDIAC DIET. IV SITE ON RFA #20, INTACT, PATENT AND FLUSHED. SAFETY MEASURES IMPLEMENTED. CALL LIGHT WITHIN REACH. BED ALARM IS ON. BED LOCKED AND IN LOWEST POSITION WITH SIDE RAILS UP X2. WILL CONTINUE TO MONITOR.
--- NOTE | 2020-08-06 07:15 | NUR ---
RN NOTE REPORT GIVEN TO ONCOMING SHIFT FOR ZAC.
[2020-08-06] MEDS: BLOOD SUGAR DIAGNOSTIC 1 EACH STRIP IN SCH ×5 (07:53→21:15)
[2020-08-06] MEDS: PANTOPRAZOLE 40 MG TABLET.DR PO SCH (07:54)
[2020-08-06 08:00] VITALS: BP 142/66
[2020-08-06] MEDS: INSULIN LISPRO/ASPART 100 UNIT/ML CARTRIDGE SQ SCH ×4 (08:04→21:27)
[2020-08-06] MEDS: INSULIN LISPRO/ASPART 100 UNIT/ML CARTRIDGE SQ PRN ×4 (08:06→21:28)
[2020-08-06] MEDS: FLUTICASONE PROPIONATE 16 GM BOTTLE NS SCH ×2 (08:52→17:48)
[2020-08-06] MEDS: FLUTICASONE/VILANTEROL 1 EACH BLST.W.DEV IH SCH (08:52)
[2020-08-06] MEDS: hydrALAZINE HCL 50 MG TABLET PO SCH ×3 (08:53→17:00)
[2020-08-06] MEDS: CLOPIDOGREL BISULFATE 75 MG TABLET PO SCH (08:53)
[2020-08-06] MEDS: METHOCARBAMOL (750MG) 750 MG TABLET PO SCH ×3 (08:54→17:47)
[2020-08-06] MEDS: DOXAZOSIN MESYLATE (4 MG) 4 MG TABLET PO SCH ×2 (08:54→17:47)
[2020-08-06] MEDS: DILTIAZEM HCL CD 240 MG PO SCH (08:55)
[2020-08-06] MEDS: ASPIRIN EC 81 MG TABLET.DR PO SCH (08:55)
[2020-08-06] MEDS: LORATADINE 10 MG TABLET PO SCH (08:55)
[2020-08-06] MEDS: predniSONE 20 MG TABLET PO SCH (08:55)
[2020-08-06] MEDS: THEOPHYLLINE ANHYDROUS 100 MG TAB.SR.12H PO SCH ×2 (08:56→21:14)
[2020-08-06] MEDS: NITROGLYCERIN 30 GM TUBE TP SCH ×2 (08:56→21:14)
[2020-08-06] MEDS: CHOLECALCIFEROL 1,000 UNIT TABLET (VIT D3) PO SCH (08:56)
[2020-08-06] MEDS: INSULIN GLARGINE, 100 UNIT/ML CARTRIDGE SQ SCH (08:59)
[2020-08-06 09:00] LABS: BASOPHILS % (AUTO) 0.1 % (0.0-2.0); HEMATOCRIT 44 % (39-51); HEMOGLOBIN 14.2 g/dL (13.5-17.5); LYMPHOCYTES # (AUTO) 0.9 /CMM (0.8-4.8); LYMPHOCYTES % (AUTO) 7.7 % (20.0-44.0); MEAN CORPUSCULAR HGB CONC 32 g/dl (31.0-36.0); MEAN CORPUSCULAR VOLUME 89 fL (80-96); MONOCYTES # (AUTO) 0.8 /CMM (0.1-1.30); MONOCYTES % (AUTO) 6.9 % (2.0-12.0); NEUTROPHILS # (AUTO) 9.9 /CMM (1.8-8.9); NEUTROPHILS % (AUTO) 85.3 % (43.0-81.0); PLATELET COUNT (AUTO) 211 /CMM (150-450); RED BLOOD CELL COUNT(AUTO) 4.99 MIL/uL (4.5-6.0); WHITE BLOOD COUNT (AUTO) 11.6 K/uL (4.3-11.0)
[2020-08-06 09:43] LABS: ALBUMIN 3.1 g/dL (3.4-5.0); BILIRUBIN,TOTAL 0.5 mg/dL (0.2-1.0); CREATININE 2.2 mg/dL (0.6-1.3); MAGNESIUM 2.8 mg/dL (1.8-2.4); PHOSPHORUS 5.1 mg/dL (2.5-4.9)
--- NOTE | 2020-08-06 13:00 | NUR ---
RN NOTES HYDRALAZINE NOT GIVEN, LOW BP
[2020-08-06 16:00] VITALS: BP 147/61
--- NOTE | 2020-08-06 18:57 | NUR ---
RN CLOSING NOTES NO SIGNIFICANT CHANGES THROUGHOUT THE SHIFT. NOT IN DISTRESS. NO PAIN REPORTED. NEEDS ATTENDED. ALL DUE MEDS GIVEN. SAFETY MEASURES STILL IN PLACE. WILL ENDORSE TO NIGHT RN FOR ZAC.
--- NOTE | 2020-08-06 19:37 | NUR ---
RN NOTE PATIENT IS A/O X4, ABLE TO MAKE NEEDS KNOWN. ON ROOM AIR, O2 SAT WNL. RESPIRATIONS EVEN AND UNLABORED. DENIES ANY PAIN AT THIS TIME. IV SITE ON RFA #20 PATENT AND INTACT. FLUSHED WITH NS. SAFETY MEASURES IMPLEMENTED WITH SR UP X2. CALL LIGHT WITHIN REACH. WILL CONTINUE TO MONITOR.
[2020-08-06 20:00] VITALS: BP 141/55
[2020-08-06] MEDS: MONTELUKAST SODIUM (10MG) 10 MG TABLET PO SCH (21:15)
[2020-08-06] MEDS: TAMSULOSIN 0.4 MG CAP.SR.24H PO SCH (21:15)
[2020-08-06] MEDS: TOPIRAMATE 25 MG TABLET PO SCH (21:15)
[2020-08-06] MEDS: SIMVASTATIN 10 MG TABLET PO SCH (21:16)
[2020-08-06] MEDS: DUTASTERIDE (0.5 MG) 0.5 MG CAPSULE PO SCH (21:16)
[2020-08-07] MEDS: IPRATROPIUM NEB FS 0.5 MG/2.5 ML AMPUL.NEB NEB SCH ×3 (03:30→11:23)
[2020-08-07] MEDS: ALBUTEROL FS 2.5 MG/3 ML VIAL.NEB NEB SCH ×3 (03:30→11:23)
[2020-08-07 04:00] VITALS: BP 153/68
--- NOTE | 2020-08-07 04:10 | NUR ---
C/O OF 3/10 HEADACHE, TYLENOL 650 MG PRN ADMINISTERED ORDERED. WILL CONTINUE TO MONITOR.
[2020-08-07 06:16] LABS: CALCIUM, SERUM 9.4 mg/dL (8.5-10.1); CREATININE 1.9 mg/dL (0.6-1.3); POTASSIUM 3.8 mmol/L (3.5-5.1)
[2020-08-07] MEDS: BLOOD SUGAR DIAGNOSTIC 1 EACH STRIP IN SCH ×2 (06:39→11:30)
[2020-08-07] MEDS: INSULIN LISPRO/ASPART 100 UNIT/ML CARTRIDGE SQ SCH ×2 (06:43→11:31)
[2020-08-07] MEDS: INSULIN LISPRO/ASPART 100 UNIT/ML CARTRIDGE SQ PRN ×2 (06:44→11:32)
--- NOTE | 2020-08-07 06:58 | NUR ---
RN NOTE PATIENT IS A/O X4, ABLE TO MAKE NEEDS KNOWN. ON ROOM AIR, O2 SAT 92%. RESPIRATIONS EVEN AND UNLABORED. DENIES ANY PAIN AT THIS TIME. IV SITE ON RFA #20 PATENT AND INTACT. FLUSHED WITH NS. ALL DUE MEDS GIVEN ORDERED. NO SIGNIFICANT CHANGE DURING THIS SHIFT. SAFETY MEASURES IMPLEMENTED WITH SIDERAILS UP X2. CALL LIGHT WITHIN REACH. WILL ENDORSE TO AM SHIFT.
[2020-08-07 06:59] LABS: BASOPHILS % (AUTO) 0.1 % (0.0-2.0); HEMATOCRIT 43 % (39-51); HEMOGLOBIN 13.9 g/dL (13.5-17.5); LYMPHOCYTES # (AUTO) 0.8 /CMM (0.8-4.8); MEAN CORPUSCULAR HGB CONC 33 g/dl (31.0-36.0); MEAN CORPUSCULAR VOLUME 88 fL (80-96); MONOCYTES # (AUTO) 0.6 /CMM (0.1-1.30); MONOCYTES % (AUTO) 9.1 % (2.0-12.0); NEUTROPHILS # (AUTO) 5.5 /CMM (1.8-8.9); NEUTROPHILS % (AUTO) 78.8 % (43.0-81.0); PLATELET COUNT (AUTO) 186 /CMM (150-450); RED BLOOD CELL COUNT(AUTO) 4.85 MIL/uL (4.5-6.0); WHITE BLOOD COUNT (AUTO) 6.9 K/uL (4.3-11.0)
[2020-08-07] MEDS: PANTOPRAZOLE 40 MG TABLET.DR PO SCH (07:30)
--- NOTE | 2020-08-07 07:30 | NUR ---
RN NOTE PATIENT IS A/O X4, ABLE TO MAKE NEEDS KNOWN. ON ROOM AIR, O2 SAT WNL. RESPIRATIONS EVEN AND UNLABORED. DENIES ANY PAIN AT THIS TIME. IV SITE ON RFA #20 PATENT AND INTACT. FLUSHED WITH NS. ALL SAFETY MEASURES IN PLACE PER HOSPITAL POLICY. CALL LIGHT WITHIN REACH. WILL CONTINUE TO MONITOR AND PROVIDE TREATMENT.
[2020-08-07 08:00] VITALS: BP 139/79
--- NOTE | 2020-08-07 08:30 | NUR ---
patient refused partial AM meds. education was given, patient continued to refuse.
[2020-08-07] MEDS: INSULIN GLARGINE, 100 UNIT/ML CARTRIDGE SQ SCH (08:39)
[2020-08-07] MEDS: CHOLECALCIFEROL 1,000 UNIT TABLET (VIT D3) PO SCH (08:41)
[2020-08-07] MEDS: CLOPIDOGREL BISULFATE 75 MG TABLET PO SCH (08:41)
[2020-08-07] MEDS: THEOPHYLLINE ANHYDROUS 100 MG TAB.SR.12H PO SCH (08:41)
[2020-08-07 08:42] VITALS: BP 139/79
[2020-08-07] MEDS: FLUTICASONE PROPIONATE 16 GM BOTTLE NS SCH (08:42)
[2020-08-07] MEDS: NITROGLYCERIN 30 GM TUBE TP SCH (08:42)
[2020-08-07] MEDS: ASPIRIN EC 81 MG TABLET.DR PO SCH (08:42)
[2020-08-07] MEDS: FLUTICASONE/VILANTEROL 1 EACH BLST.W.DEV IH SCH (08:43)
[2020-08-07] MEDS: METHOCARBAMOL (750MG) 750 MG TABLET PO SCH (08:54)
[2020-08-07] MEDS: hydrALAZINE HCL 50 MG TABLET PO SCH (08:54)
[2020-08-07] MEDS: DOXAZOSIN MESYLATE (4 MG) 4 MG TABLET PO SCH (08:54)
[2020-08-07] MEDS: DILTIAZEM HCL CD 240 MG PO SCH (08:54)
[2020-08-07] MEDS: LORATADINE 10 MG TABLET PO SCH (08:54)
--- NOTE | 2020-08-07 11:00 | NUR ---
patient refused chest x-ray.
--- NOTE | 2020-08-07 12:15 | NUR ---
IV ACCESS REMOVED PRIOR TO DISCHARGE. NO S/S OF EXCESSIVE BLEEDING. UPON SIGNING BELONGINGS LIST, PATIENT INFORMED ME THAT HIS PHONE IS MISSING. PATIENT STATED THAT HE LOST HIS PHONE IN THE ER. HE STATED THAT THE NURSE IN THE ER HAD INFORMED HIM THAT HE PUT HIS PHONE IN HIS BOOK BAG WHEN THE PATIENT WENT TO THE RESTROOM. UPON ARRIVAL TO THE UNIT, THE PATIENT STATED HE FOUND THAT THE PHONE WAS NOT IN THE BOOK BAG. HE WAS TOLD LATER ON THAT THE NURSE HAD GIVEN THE PHONE TO HIS , HOWEVER THE STATED THAT SHE WAS NEVER GIVEN THE PHONE. I CONFIRMED THIS THROUGH A PHONE CALL WITH THE , RAFAELA. CHARGE NURSE AND PIPE AND TEST SUPERVISOR WAS NOTIFIED.
--- NOTE | 2020-08-07 12:50 | NUR ---
PATIENT WAS DISCHARGED HOME VIA PRIVATE CAR ESCORTED BY BROTHER. ALL BELONGINGS TAKEN WITH PATIENT, OTHER THAN PHONE. PATIENT IN STABLE CONDITION AT TIME OF DISCHARGE.
== END 2020-08-07 13:00 | disposition home health service (06) | DRG 640 ==
LOC: ER 19:33 → TELE1 21:47 → MEDSG1 08-05 08:06
PROVIDERS: ADMIT Internal Medicine; ATTEND Internal Medicine
DX: E87.70 Fluid overload, unspecified (principal); J96.01 Acute respiratory failure with hypoxia; I21.A1 Myocardial infarction type 2; N17.0 Acute kidney failure with tubular necrosis; J45.901 Unspecified asthma with (acute) exacerbation; Z68.41 Body mass index [BMI] 40.0-44.9, adult; E44.0 Moderate protein-calorie malnutrition; E66.2 Morbid (severe) obesity with alveolar hypoventilation; J44.0 Chronic obstructive pulmonary disease with (acute) lower respiratory infection; E87.2 Acidosis; E78.5 Hyperlipidemia, unspecified; E11.9 Type 2 diabetes mellitus without complications; J45.909 Unspecified asthma, uncomplicated; Z86.73 Personal history of transient ischemic attack (TIA), and cerebral infarction without residual deficits; Z87.891 Personal history of nicotine dependence; E11.22 Type 2 diabetes mellitus with diabetic chronic kidney disease; Z99.81 Dependence on supplemental oxygen; E11.65 Type 2 diabetes mellitus with hyperglycemia; Z85.47 Personal history of malignant neoplasm of testis; Z90.79 Acquired absence of other genital organ(s); Z91.19 Patient's noncompliance with other medical treatment and regimen; Z88.6 Allergy status to analgesic agent; Z88.8 Allergy status to other drugs, medicaments and biological substances; Z79.4 Long term (current) use of insulin; Z79.51 Long term (current) use of inhaled steroids; Z79.899 Other long term (current) drug therapy; Z79.82 Long term (current) use of aspirin; I25.10 Atherosclerotic heart disease of native coronary artery without angina pectoris; J44.9 Chronic obstructive pulmonary disease, unspecified; N40.0 Benign prostatic hyperplasia without lower urinary tract symptoms; N18.9 Chronic kidney disease, unspecified; Z20.822 Contact with and (suspected) exposure to COVID-19; Z79.02 Long term (current) use of antithrombotics/antiplatelets; N13.9 Obstructive and reflux uropathy, unspecified; J20.9 Acute bronchitis, unspecified; I12.9 Hypertensive chronic kidney disease with stage 1 through stage 4 chronic kidney disease, or unspecified chronic kidney disease
CPT/HCPCS: 36415; 36600; 71045-TC; 76770-TC; 80048-TC; 80053-TC; 80061-TC; 80076-TC; 82803-TC; 82947-TC; 82962-TC; 83735-TC; 83880; 84100-TC; 84443-TC; 84484-TC; 85025-TC; 87081-TC; 93307-TC; 94760-TC; 94762-TC; 94799-TC; 97112-TC; 97116-TC; 97530-TC; C9803; G0378; J1815; J1940; J2543; J2920

== ENCOUNTER 2021-10-30 15:20 | Emergency (ER) | payer MEDICARE, OTHER ==
[~2021-10-30] VITALS: Ht 162.6 cm; Wt 104.3 kg
[~2021-10-30 15:20] MED LIST changes: -ALBU2.5V38 IH; -ASPI-605 PO; +CHOL200010 PO; +DOXA4TAB3 PO; +DUTA0.5C PO; +FLUT1BLS IH; +FURO-144 PO; +ICOS1CAP2 PO; +METH-406 PO; -MINO10TA2 PO; -MOME13HF IH; +MOME15OI2 TP; +MYRBETRIQ PO; +ONDA4TAB11 PO; +ROSU20TA32 PO; -SIMV-49 PO; +SULF15DR6 OP; -TAMS0.4C34 PO; +TOPI25TA49 PO
[2021-10-30 17:24] LABS: BASOPHILS % (AUTO) 0.6 % (0.0-2.0); EOSINOPHILS % (AUTO) 2.1 % (0.0-6.0); HEMATOCRIT 44 % (39-51); HEMOGLOBIN 14.4 g/dL (13.5-17.5); LYMPHOCYTES # (AUTO) 1.3 K/uL (0.8-4.8); LYMPHOCYTES % (AUTO) 15.4 % (20.0-44.0); MEAN CORPUSCULAR HGB CONC 33 g/dl (31.0-36.0); MEAN CORPUSCULAR VOLUME 90 fL (80-96); MONOCYTES # (AUTO) 0.8 K/uL (0.1-1.30); MONOCYTES % (AUTO) 8.7 % (2.0-12.0); NEUTROPHILS # (AUTO) 6.3 K/uL (1.8-8.9); NEUTROPHILS % (AUTO) 73.2 % (43.0-81.0); PLATELET COUNT (AUTO) 276 K/uL (150-450); RED BLOOD CELL COUNT(AUTO) 4.85 MIL/uL (4.5-6.0); WHITE BLOOD COUNT (AUTO) 8.7 K/uL (4.3-11.0)
[2021-10-30 17:35] LABS: CALCIUM, SERUM 8.8 mg/dL (8.5-10.1); POTASSIUM 3.9 mmol/L (3.5-5.1)
--- NOTE | 2021-10-30 17:58 | NUR ---
DAVIE MARTINEZ SPEAKING WITH DR LANE (PATIENT PCP) [phone]
[2021-10-30] MEDS ORDERED: LABETALOL HCL IV 100MG VIAL IV ONE (18:30)
[2021-10-30] MEDS ORDERED: LABETALOL HCL IV 100MG VIAL ONE (18:32)
--- NOTE | 2021-10-30 18:55 | NUR ---
CONTACTED DR. CARDONA.
--- NOTE | 2021-10-30 18:56 | NUR ---
IV did not work and stay intact had to D/C IV and Labetalol IV order not given therefore a tablet form PO will be ordered to treat the High B/P at this time MD notified and awaiting order
[2021-10-30] MEDS ORDERED: CLONIDINE HCL 0.1 MG TABLET PO ONE (19:00)
[2021-10-30] MEDS ORDERED: hydrALAZINE HCL IV 20 MG VIAL IV ONE (19:00)
[2021-10-30] MEDS ORDERED: CLONIDINE HCL 0.1 MG TABLET ONE (19:06)
[2021-10-30 19:07] VITALS: BP 119/110
--- NOTE | 2021-10-30 19:47 | NUR ---
DR HERNDON ON PHONE WITH DR SANTACRUZ
--- NOTE | 2021-10-30 20:10 | NUR ---
Patient discharged to home in stable condition. Written and verbal after care instructions given. Patient verbalizes understanding of instruction. ambulatory with a steady gait. imaging given. with patient.
== END 2021-10-30 20:15 | disposition home or self-care (01) ==
LOC: ER 15:26
DX: S06.5X9A Traumatic subdural hemorrhage with loss of consciousness of unspecified duration, initial encounter (principal); I10 Essential (primary) hypertension; J45.909 Unspecified asthma, uncomplicated; E11.9 Type 2 diabetes mellitus without complications; E78.5 Hyperlipidemia, unspecified; Z88.8 Allergy status to other drugs, medicaments and biological substances; Z79.899 Other long term (current) drug therapy; W10.9XXA Fall (on) (from) unspecified stairs and steps, initial encounter; Y93.89 Activity, other specified; Y92.89 Other specified places as the place of occurrence of the external cause; Y99.8 Other external cause status
CPT/HCPCS: 36415; 70450; 71045; 80048; 85025; 85730; 93005; 96374; 99285; J3490